=== PATIENT | female | born 1975 | race Caucasian/White ===

== ENCOUNTER 2016-09-27 10:58 | Emergency (ER) | payer SELFPAY ==
[~2016-09-27 10:58] MED LIST: AMOX500C PO; CHLO15MO2 PO; CLIN-44 PO; HYDR-2666 PO; HYDR-971 PO; IBUP800T PO
[2016-09-27 11:05] VITALS: BP 113/74
[2016-09-27] MEDS ORDERED: IPRATRPIUM/ALBUTEROL 0.5/2.5MG 3 ML NEBU. ONE (11:12)
[2016-09-27] MEDS: IPRATRPIUM/ALBUTEROL 0.5/2.5MG 3 ML NEBU. NEB ONE (11:16)
--- NOTE | 2016-09-27 11:39 | RAD ---
PA and lateral chest radiographs 09/27/2016 Clinical history: Cough for 4 days. 2 PA and a lateral digital radiographs of the chest were obtained. Comparison study is dated 06/22/2015. The cardiac and mediastinal silhouettes are within normal limits in size and configuration. No acute pulmonary infiltrate is seen. No pleural effusion or pneumothorax is noted. Minimal degenerative changes are seen involving the thoracic spine. Impression: No acute abnormality is seen.
[2016-09-27] MEDS ORDERED: IBUP600T16 PO (12:16)
[2016-09-27] MEDS ORDERED: ALBU8.5H3 INH (12:16)
[2016-09-27] MEDS ORDERED: PRED50TA PO (12:16)
--- NOTE | 2016-09-27 12:35 | ED.ADGEN ---
Past History Past Medical History: Asthma Past Surgical History: Appendectomy, Hysterectomy, Other Smoking: Greater than 1 pack/day Alcohol Use: None Drug Use: None Adult General Chief Complaint Chief Complaint Cough , body aches HPI HPI Patient is a 41 year old female who presents with 4 days of cough, congestion, sinus drainage, body aches and wheezing. Patient reports she has a history of asthma, has been using her daughter's inhaler she does not have one. She's had subjective fevers, not taken her temperature. Not taking symptom controlling medication. Does not actively have a primary care physician. Review of Systems Review of Systems Constitutional: Per history of present illness Eyes: Denies change in visual acuity, redness, or eye pain [] HENT: Denies nasal congestion or sore throat [] Respiratory: Per history of present illness Cardiovascular: Denies chest pain GI: Denies abdominal pain, nausea, vomiting, bloody stools or diarrhea [] : Denies dysuria or hematuria [] Musculoskeletal: Denies back pain or joint pain [] Integument: Denies rash or skin lesions [] Neurologic: Denies headache, focal weakness or sensory changes [] Current Medications Current Medications Current Medications Medications (Trade) Dose Ordered Sig/Raad Start Time Stop Time Status Last Admin Dose Admin Albuterol/ Ipratropium (Duoneb) 3 ml STK-MED ONCE 09/27/16 11:12 09/27/16 11:13 DC Allergies Allergies Allergies Coded Allergies Type Severity Reaction Last Updated Verified No Known Drug Allergies 08/20/13 No Physical Exam Physical Exam Constitutional: Well developed, well nourished, no acute distress, ill appearing , non-toxic appearance. [] HENT: Normocephalic, atraumatic, bilateral external ears normal, oropharynx moist, no oral exudates, nose normal. [] Eyes: PERRLA, EOMI, conjunctiva normal, no discharge. [] Neck: Normal range of motion, no tenderness, supple, no stridor. [] Cardiovascular:Heart rate regular rhythm, no murmur [] Lungs & Thorax: Bilateral breath sounds and expiratory wheezes, moderate air movement Abdomen: Bowel sounds normal, soft, no tenderness, no masses, no pulsatile masses. [] Skin: Warm, dry, no erythema, no rash. [] Back: No tenderness, no CVA tenderness. [] Extremities: No tenderness, no cyanosis, no clubbing, ROM intact, no edema. [] Neurologic: Alert and oriented X 3, normal motor function, normal sensory function, no focal deficits noted. [] Psychologic: Affect normal, judgement normal, mood normal. [] Current Patient Data Vital Signs Vital Signs Date Time Temp Pulse Resp B/P Pulse Ox O2 Delivery O2 Flow Rate FiO2 09/27/16 11:16 98 Room Air 09/27/16 11:05 98.2 73 22 EKG EKG [] Radiology/Procedures Radiology/Procedures Chest x-ray: PA and lateral chest radiographs 09/27/2016 Clinical history: Cough for 4 days. 2 PA and a lateral digital radiographs of the chest were obtained. Comparison study is dated 06/22/2015. The cardiac and mediastinal silhouettes are within normal limits in size and configuration. No acute pulmonary infiltrate is seen. No pleural effusion or pneumothorax is noted. Minimal degenerative changes are seen involving the thoracic spine. Impression: No acute abnormality is seen. Course & Med Decision Making Course & Med Decision Making Pertinent Labs and Imaging studies reviewed. (See chart for details) Patient was given a DuoNeb breathing treatment and states she is feeling much better. Chest x-ray performed shows no acute process. Recommended patient to 5 days of steroids, prescription for albuterol inhaler given. Patient reports understanding, understands follow-up with primary care physician, referral sheet given. Patient also given her prescription for ibuprofen for body aches. On repeat exam patient is moving good air without wheeze Final Impression Final Impression Upper respiratory infection Asthma [] Problems: Dragon Disclaimer Dragon Disclaimer This electronic medical record was generated, in whole or in part, using a voice recognition dictation system. HERRERA PETERSON MD Sep 27, 2016 12:35
== END 2016-09-27 12:40 | disposition home or self-care (01) ==
LOC: ER 10:58
DX: J06.9 Acute upper respiratory infection, unspecified (principal); J45.909 Unspecified asthma, uncomplicated; R50.9 Fever, unspecified; F17.200 Nicotine dependence, unspecified, uncomplicated
CPT/HCPCS: 71020; 94640; 99284; J7620

== ENCOUNTER 2017-09-02 21:08 | Emergency (ER) | payer SELFPAY ==
[~2017-09-02] VITALS: Ht 162.6 cm; Wt 61.7 kg
[2017-09-02 21:08] VITALS: BP 160/79
[~2017-09-02 21:08] MED LIST changes: +ALBU8.5H8 INH; -CLIN-44 PO; +CLIN150C14 PO; -HYDR-2666 PO; +HYDR-2758 PO; +IBUP600T16 PO; -IBUP800T PO; +IBUP800T19 PO; +PRED50TA PO
--- NOTE | 2017-09-02 21:13 | ED.ADGEN ---
Past History Past Medical History: Asthma Past Surgical History: Appendectomy, Hysterectomy, Other Smoking: Greater than 1 pack/day Alcohol Use: None Drug Use: None Adult General Chief Complaint Chief Complaint " I was eating cake at wedding shower.. and got this severe pain.. I am dying from this dental pain" HPI HPI Patient is a 42 year old female who presents with severe pain and dental cavities particularly teeth 30, 31, 32. She has multiple cavities and gingivitis. No pointing abscesses appreciated. No history of immunosuppression. Recent travel. No trismus. Good bite. Review of Systems Review of Systems Constitutional: Denies fever or chills [] Eyes: Denies change in visual acuity, redness, or eye pain [] HENT: Denies nasal congestion or sore throat []complaints of severe dental pain Respiratory: Denies cough or shortness of breath [] Cardiovascular: No additional information not addressed in HPI [] GI: Denies abdominal pain, nausea, vomiting, bloody stools or diarrhea [] : Denies dysuria or hematuria [] Musculoskeletal: Denies back pain or joint pain [] Integument: Denies rash or skin lesions [] Neurologic: Denies headache, focal weakness or sensory changes [] Endocrine: Denies polyuria or polydipsia [] All other systems were reviewed and found to be within normal limits, except as documented in this note. Family History Family History Noncontributory Current Medications Current Medications Current Medications Medications (Trade) Dose Ordered Sig/Raad Start Time Stop Time Status Last Admin Dose Admin Acetaminophen (Tylenol) 1,000 mg 1X ONCE 09/02/17 22:00 09/02/17 22:01 DC 09/02/17 21:31 1,000 MG Cephalexin HCl (Keflex) 500 mg 1X ONCE 09/02/17 22:00 09/02/17 22:01 DC 09/02/17 21:31 500 MG Ketorolac Tromethamine (Toradol) 60 mg 1X ONCE 09/02/17 22:00 09/02/17 22:01 DC 09/02/17 21:30 60 MG Morphine Sulfate (Morphine 10mg Syringe) 10 mg 1X ONCE 09/02/17 22:30 09/02/17 22:31 DC 09/02/17 22:40 10 MG See nursing for home meds Allergies Allergies Allergies Coded Allergies Type Severity Reaction Last Updated Verified No Known Drug Allergies 08/20/13 No Physical Exam Physical Exam Constitutional: Well developed, well nourished,in acute distress, non-toxic appearance. [] HENT: Normocephalic, atraumatic, bilateral external ears normal, oropharynx moist, no oral exudates, nose normal. []Multiple dental caries and pain in molar teeth as per history of present illness Eyes: PERRLA, EOMI, conjunctiva normal, no discharge. [] Neck: Normal range of motion, no tenderness, supple, no stridor. [] Cardiovascular: Tachycardia Heart rate regular rhythm, no murmur [] Lungs & Thorax: Bilateral breath sounds equal at apexes with a few scattered wheezes on auscultation [] Abdomen: Bowel sounds normal, soft, no tenderness, no masses, no pulsatile masses. Old surgery scars Skin: Warm, dry, no erythema, no rash. [] Back: No tenderness, no CVA tenderness. [] Extremities: No tenderness, no cyanosis, no clubbing, ROM intact, no edema. [] Neurologic: Alert and oriented X 3, normal motor function, normal sensory function, no focal deficits noted. [] Psychologic: Affect anxious, judgement normal, mood depressed, tearful,] EKG EKG [] Radiology/Procedures Radiology/Procedures [] Course & Med Decision Making Course & Med Decision Making Pertinent Labs and Imaging studies reviewed. (See chart for details). Patient to rinse mouth with hydrogen peroxide 4 times a day after eating or drinking. Take Keflex 500 mg 3 times a day. May take Vicoprofen for severe pain not relieved with Tylenol and ibuprofen. Patient must follow-up with Dentist. Further narcotics must be refilled by primary care and dentist. [] Final Impression Final Impression 1. Dental pain[]- Morlar 30, 31, 32, 2. Dental caries and gingivitis 3. Tobacco use Problems: Dragon Disclaimer Dragon Disclaimer This electronic medical record was generated, in whole or in part, using a voice recognition dictation system. JANETH PUTNAM MD Sep 02, 2017 21:13
[2017-09-02] MEDS ORDERED: CEPHALEXIN 250 MG CAPSULE ONE (21:24)
[2017-09-02] MEDS ORDERED: ACETAMINOPHEN 500 MG TABLET PO ONE ×2 (21:24→22:00)
[2017-09-02] MEDS ORDERED: KETOROLAC 60 MG/2 ML VIAL. IM ONE ×2 (21:24→22:00)
[2017-09-02] MEDS ORDERED: HYDR-79 PO (21:26)
[2017-09-02] MEDS ORDERED: CEPH-264 PO (21:26)
[2017-09-02] MEDS ORDERED: MORPHINE SULFATE 10 MG/ML SYRINGE. ONE (21:56)
[2017-09-02] MEDS ORDERED: CEPHALEXIN 250 MG CAPSULE PO ONE (22:00)
[2017-09-02] MEDS ORDERED: MORPHINE SULFATE 10 MG/ML SYRINGE. SQ ONE (22:30)
== END 2017-09-02 22:40 | disposition home or self-care (01) ==
LOC: ER 21:08
DX: K02.9 Dental caries, unspecified (principal); K05.10 Chronic gingivitis, plaque induced; F17.200 Nicotine dependence, unspecified, uncomplicated; J45.909 Unspecified asthma, uncomplicated
CPT/HCPCS: 96372; 99284; J1885; J2270

== ENCOUNTER 2017-10-07 17:15 | Emergency (ER) | payer SELFPAY ==
[~2017-10-07] VITALS: Ht 162.6 cm; Wt 56.7 kg
[~2017-10-07 17:15] MED LIST changes: +CEPH-264 PO; +HYDR-79 PO
[2017-10-07] MEDS ORDERED: IV NORMAL SALINE 1,000ML 1,000 ML IV SCH (17:36)
[2017-10-07] MEDS ORDERED: ONDANSETRON PF 4 MG/2 ML VIAL. IV ONE ×2 (17:45→20:30)
[2017-10-07] MEDS ORDERED: 0.9 % SODIUM CHLORIDE 10 ML DISP.SYRIN. IV PRN (17:45)
[2017-10-07 17:55] LABS: BASO # 0.1 x10^3/uL (0.0-0.2); BASO % 1 % (0-3); EOS # 0.2 x10^3/uL (0.0-0.7); EOS % 2 % (0-3); HEMATOCRIT 40.3 % (36.0-47.0); HEMOGLOBIN 13.9 g/dL (12.0-15.5); LYMPH # 2.7 x10^3/uL (1.0-4.8); LYMPH % 26 % (24-48); MEAN CORPUSCULAR HEMOGLOBIN 31 pg (25-35); MEAN CORPUSCULAR HGB CONC 34 g/dL (31-37); MEAN CORPUSCULAR VOLUME 91 fL (79-100); MONO # 0.7 x10^3/uL (0.0-1.1); MONO % 7 % (0-9); NEUT # 6.9 x10^3uL (1.8-7.7); NEUT % 66 % (31-73); PLATELET COUNT 230 x10^3/uL (140-400); RED BLOOD COUNT 4.44 x10^6/uL (3.50-5.40); RED CELL DISTRIBUTION WIDTH 12.9 % (11.5-14.5); WHITE BLOOD COUNT 10.6 x10^3/uL (4.0-11.0)
--- NOTE | 2017-10-07 18:00 | ED.ADGEN ---
Past History Past Medical History: No Pertinent History Past Surgical History: No Surgical History Smoking: Greater than 1 pack/day Alcohol Use: Occasionally Drug Use: None Adult General Chief Complaint Chief Complaint " I ve been dizzy to day.. and some discomfort when I urinate...".. " just feel off..." HPI HPI Patient is a 42 year old female who presents with above hx and complaints of dizzy and dysuria. Pt. complaints of some nausea. Pt. has hx of prior UTI's. No travel or specific ill contacts. Pt. denies any trauma. Pt. normally healthy. No complaints of shortness of breath or irregular heart rate. Review of Systems Review of Systems Constitutional: Denies fever or chills [] Eyes: Denies change in visual acuity, redness, or eye pain [] HENT: Denies nasal congestion or sore throat [] Respiratory: Denies cough or shortness of breath [] Cardiovascular: No additional information not addressed in HPI [] GI: Denies abdominal pain, nausea, vomiting, bloody stools or diarrhea [] : Complaints of dysuria Musculoskeletal: Denies back pain or joint pain [] Integument: Denies rash or skin lesions [] Neurologic: Denies headache, focal weakness or sensory changes []complaints of dizziness Endocrine: Denies polyuria or polydipsia [] All other systems were reviewed and found to be within normal limits, except as documented in this note. Family History Family History Noncontributory Current Medications Current Medications Current Medications Medications (Trade) Dose Ordered Sig/Raad Start Time Stop Time Status Last Admin Dose Admin Ceftriaxone Sodium 1 gm/ Sodium Chloride 50 ml @ 100 mls/hr 1X ONCE 10/07/17 19:45 10/07/17 20:14 DC 10/07/17 20:00 100 MLS/HR Ondansetron HCl (Zofran) 8 mg 1X ONCE 10/07/17 20:30 10/07/17 20:31 DC 10/07/17 20:15 8 MG Sodium Chloride (Normal Saline Flush) 10 ml QSHIFT PRN 10/07/17 17:45 10/08/17 01:51 DC Trimethoprim/ Sulfamethoxazole (Bactrim Ds) 1 tab 1X ONCE 10/07/17 20:00 10/07/17 20:05 DC 10/07/17 20:00 1 TAB Allergies Allergies Allergies Coded Allergies Type Severity Reaction Last Updated Verified No Known Drug Allergies 08/20/13 No Physical Exam Physical Exam Constitutional: Well developed, well nourished, no acute distress, non-toxic appearance. [] HENT: Normocephalic, atraumatic, bilateral external ears normal, oropharynx moist, no oral exudates, nose normal. [] Eyes: PERRLA, EOMI, conjunctiva normal, no discharge. [] Neck: Normal range of motion, no tenderness, supple, no stridor. [] Cardiovascular:Heart rate regular rhythm, no murmur [] Lungs & Thorax: Bilateral breath sounds equal at apex with scattered wheezes on auscultation [] Abdomen: Bowel sounds normal, soft, no tenderness, no masses, no pulsatile masses. [] Skin: Warm, dry, no erythema, no rash. [] Back: No tenderness, no CVA tenderness. [] Extremities: No tenderness, no cyanosis, no clubbing, ROM intact, no edema. [] No cording noted Neurologic: Alert and oriented X 3, normal motor function, normal sensory function, no focal deficits noted. []DTRs +2 patella and brachial. No drift. Turbinated Bone Grinder equal. Ambulatory without problems. Psychologic: Affect anxious, judgement normal, mood normal. [] Current Patient Data Vital Signs Vital Signs Date Time Temp Pulse Resp B/P (MAP) Pulse Ox O2 Delivery O2 Flow Rate FiO2 10/07/17 18:04 78 16 85/56 (66) 99 Room Air 10/07/17 17:24 98.3 Lab Results Laboratory Tests Test 10/07/17 17:31 10/07/17 18:22 White Blood Count 10.6 x10^3/uL (4.0-11.0) Red Blood Count 4.44 x10^6/uL (3.50-5.40) Hemoglobin 13.9 g/dL (12.0-15.5) Hematocrit 40.3 % (36.0-47.0) Mean Corpuscular Volume 91 fL (79-100) Mean Corpuscular Hemoglobin 31 pg (25-35) Mean Corpuscular Hemoglobin Concent 34 g/dL (31-37) Red Cell Distribution Width 12.9 % (11.5-14.5) Platelet Count 230 x10^3/uL (140-400) Neutrophils (%) (Auto) 66 % (31-73) Lymphocytes (%) (Auto) 26 % (24-48) Monocytes (%) (Auto) 7 % (0-9) Eosinophils (%) (Auto) 2 % (0-3) Basophils (%) (Auto) 1 % (0-3) Neutrophils # (Auto) 6.9 x10^3uL (1.8-7.7) Lymphocytes # (Auto) 2.7 x10^3/uL (1.0-4.8) Monocytes # (Auto) 0.7 x10^3/uL (0.0-1.1) Eosinophils # (Auto) 0.2 x10^3/uL (0.0-0.7) Basophils # (Auto) 0.1 x10^3/uL (0.0-0.2) Sodium Level 140 mmol/L (136-145) Potassium Level 3.6 mmol/L (3.5-5.1) Chloride Level 104 mmol/L (98-107) Carbon Dioxide Level 28 mmol/L (21-32) Anion Gap 8 (6-14) Blood Urea Nitrogen 8 mg/dL (7-20) Creatinine 0.7 mg/dL (0.6-1.0) Estimated GFR (Cockcroft-Gault) 91.3 BUN/Creatinine Ratio 11 (6-20) Glucose Level 97 mg/dL (70-99) Calcium Level 8.6 mg/dL (8.5-10.1) Total Bilirubin 0.3 mg/dL (0.2-1.0) Aspartate Amino Transferase (AST) 17 U/L (15-37) Alanine Aminotransferase (ALT) 23 U/L (14-59) Alkaline Phosphatase 92 U/L (46-116) Total Protein 7.2 g/dL (6.4-8.2) Albumin 3.5 g/dL (3.4-5.0) Albumin/Globulin Ratio 0.9 (1.0-1.7) L Lipase 113 U/L (73-393) Urine Collection Type Unknown Urine Color Yellow Urine Clarity Turbid Urine pH 8.0 Urine Specific [place] 1.020 Urine Protein 30 mg/dl (NEG-TRACE) Urine Glucose (UA) Neg mg/dL (NEG) Urine Ketones (Stick) Neg mg/dL (NEG) Urine Blood Trace (NEG) Urine Nitrite Neg (NEG) Urine Bilirubin Neg (NEG) Urine Urobilinogen Dipstick 0.2 mg/dL (0.2 mg/dL) Urine Leukocyte Esterase Mod (NEG) Urine RBC 3-5 /HPF (0-2) Urine WBC >40 /HPF (0-4) Urine Squamous Epithelial Cells Mod /LPF Urine Bacteria Few /HPF (0-FEW) Urine Mucus Slight /LPF EKG EKG [] Radiology/Procedures Radiology/Procedures [] Course & Med Decision Making Course & Med Decision Making Pertinent Labs and Imaging studies reviewed. (See chart for details). Push fluids. Push vitamin C drinks. Take Bactrim DS twice a day. Follow-up cultures. Tylenol ibuprofen for pain. Return if any concerns. Follow-up primary care. [] Final Impression Final Impression 1. Urinary tract infection 2. Dizziness] Problems: Dragon Disclaimer Dragon Disclaimer This electronic medical record was generated, in whole or in part, using a voice recognition dictation system. JANETH PUTNAM MD Oct 07, 2017 18:00
[2017-10-07 18:04] VITALS: BP 85/56
[2017-10-07 18:07] LABS: ALBUMIN 3.5 g/dL (3.4-5.0); ALBUMIN/GLOBULIN RATIO 0.9 (1.0-1.7); CALCIUM 8.6 mg/dL (8.5-10.1); CREATININE 0.7 mg/dL (0.6-1.0); GFR 91.3; POTASSIUM 3.6 mmol/L (3.5-5.1); TOTAL BILIRUBIN 0.3 mg/dL (0.2-1.0); TOTAL PROTEIN 7.2 g/dL (6.4-8.2)
[2017-10-07 19:00] LABS: BILIRUBIN,URINE NEG (NEG); CLARITY,URINE TURBID; COLOR,URINE YELLOW; GLUCOSE,URINE NEG (NEG); UROBILINOGEN,URINE 0.2 mg/dL (0.2 mg/dL)
[2017-10-07 19:01] LABS: BACTERIA,URINE FEW /HPF (0-FEW); NITRITE,URINE NEG (NEG); SQUAMOUS EPITHELIAL CELL,UR MOD /LPF; WBC,URINE >40 /HPF (0-4)
[2017-10-07] MEDS ORDERED: ONDA8TAB12 PO (19:29)
[2017-10-07] MEDS ORDERED: SULF1TAB24 PO (19:29)
[2017-10-07] MEDS ORDERED: SMZ/TMP 800/160MG TABLET. PO ONE (20:00)
== END 2017-10-07 20:15 | disposition home or self-care (01) ==
LOC: ER 17:15
DX: N39.0 Urinary tract infection, site not specified (principal); R42 Dizziness and giddiness; F17.200 Nicotine dependence, unspecified, uncomplicated; Z87.440 Personal history of urinary (tract) infections
CPT/HCPCS: 36415; 80053; 81001; 83690; 85025; 96361; 96374; 96375; 96376; 99284; J0696; J2405; J7030

== ENCOUNTER 2018-10-11 18:13 | Emergency (ER) | payer SELFPAY ==
[~2018-10-11] VITALS: Ht 162.6 cm; Wt 55.3 kg
[~2018-10-11 18:13] MED LIST changes: +ALBU2.5V8 INH; -ALBU8.5H8 INH; +HYDR-1179 PO; +HYDR-2155 PO; -HYDR-2758 PO; +HYDR-3165 PO; -HYDR-79 PO; -HYDR-971 PO; +ONDA8TAB12 PO; +SULF1TAB24 PO
--- NOTE | 2018-10-11 18:17 | ED.ADGEN ---
Past History Past Medical History: No Pertinent History, Migraines, UTI Past Surgical History: Hysterectomy Smoking: Greater than 1 pack/day Alcohol Use: Occasionally Drug Use: None, Amphetamine, Marijuana Adult General Chief Complaint Chief Complaint ".. I ve been hurting for two days in my lower back.. it like when I had urinary tract infection before.. but no I got headache, dizzy, and nauseated...". " I ve been coughing today... " HPI HPI Patient is a 43 year old female who presents with above hx and complaints dizzy and light headed, malaise, cough and Rt. mid to lower abd. pain. Pt. also complaints of lumbar pain. No history of trauma. No history of problems with defecation or urination. Patient states she is recently treated for urinary tract infection. Patient states she's had a hysterectomy. Patient still has ovaries. No history of vaginal discharge. No history of concerns for STD. Patient did have gonorrhea as a teenager. Patient does smoke. No history of bad food intake. No history of specific ill contacts. No history of travel. No history immunosuppression. Review of Systems Review of Systems Constitutional: Denies fever or chills [] Eyes: Denies change in visual acuity, redness, or eye pain [] HENT: Denies nasal congestion or sore throat [] Respiratory: Complaints of cough Cardiovascular: No additional information not addressed in HPI [] GI: Complaints of right flank and mid abdominal pain, nausea,. Denies vomiting, bloody stools or diarrhea [] : Denies dysuria or hematuria [] Musculoskeletal: Complains of of lumbar back pain Integument: Denies rash or skin lesions [] Neurologic: Denies headache, focal weakness or sensory changes [] Endocrine: Denies polyuria or polydipsia [] All other systems were reviewed and found to be within normal limits, except as documented in this note. Family History Family History Noncontributory Current Medications Current Medications Current Medications Medications (Trade) Dose Ordered Sig/Raad Start Time Stop Time Status Last Admin Dose Admin Acetaminophen (Tylenol) 1,000 mg 1X ONCE 10/11/18 19:00 10/11/18 19:01 DC 10/11/18 19:37 1,000 MG Ceftriaxone Sodium 1 gm/ Sodium Chloride 50 ml @ 100 mls/hr 1X ONCE 10/11/18 20:45 10/11/18 21:14 DC 10/11/18 21:39 100 MLS/HR Ceftriaxone Sodium (Rocephin) 1 gm STK-MED ONCE 10/11/18 21:25 10/11/18 21:26 DC Iohexol (Omnipaque 240 Mg/ml) 30 ml 1X ONCE 10/11/18 21:00 10/11/18 21:01 DC 10/11/18 22:34 30 ML Iohexol (Omnipaque 300 Mg/ml) 75 ml 1X ONCE 10/11/18 21:00 10/11/18 21:01 DC 10/11/18 22:34 75 ML Ketorolac Tromethamine (Toradol 30mg Vial) 30 mg 1X ONCE 10/11/18 20:00 10/11/18 20:01 DC 10/11/18 21:40 30 MG Lactated Ringer's 1,000 ml @ 1,000 mls/hr Q1H 10/11/18 18:35 10/11/18 19:34 DC 10/11/18 19:36 1,000 MLS/HR Ondansetron HCl (Zofran) 8 mg 1X ONCE 10/11/18 19:00 10/11/18 19:01 DC 10/11/18 19:37 8 MG Sodium Chloride 50 ml @ As Directed STK-MED ONCE 10/11/18 21:25 10/11/18 21:26 DC Allergies Allergies Allergies Coded Allergies Type Severity Reaction Last Updated Verified No Known Drug Allergies 10/11/18 No Physical Exam Physical Exam Constitutional: Moderately acute distress, non-toxic appearance. [] HENT: Normocephalic, atraumatic, bilateral external ears normal, oropharynx moist, no oral exudates, nose normal. [] Eyes: PERRLA, EOMI, conjunctiva normal, no discharge. [] Neck: Normal range of motion, no tenderness, supple, no stridor. [] Cardiovascular: Tachycardia Heart rate regular rhythm, no murmur [] Lungs & Thorax: Bilateral breath sounds equal apex with scattered wheezes auscultation []some rhonchi on right Abdomen: Bowel sounds decreased, soft, right mid abdomen tenderness, no masses, no pulsatile masses. [] Some right flank pain on percussion. Mild rebound to right mid abdomen. Old surgical scar. Pt. declined rectal exam or pelvic exam. Skin: Warm, dry, no erythema, no rash. [] Back: Lumbar muscle tenderness, mild right CVA tenderness. [] Extremities: No tenderness, no cyanosis, no clubbing, ROM intact, no edema. [] No true psoas sign Neurologic: Alert and oriented X 3, normal motor function, normal sensory function, no focal deficits noted. [] Psychologic: Affect anxious, judgement normal, mood normal. [] Current Patient Data Vital Signs Vital Signs Date Time Temp Pulse Resp B/P (MAP) Pulse Ox O2 Delivery O2 Flow Rate FiO2 10/12/18 00:22 73 20 90/52 (65) 98 Room Air 10/11/18 18:23 98.2 Lab Results Laboratory Tests Test 10/11/18 19:05 10/11/18 19:25 Urine Collection Type Unknown Urine Color Yellow Urine Clarity Clear Urine pH 7.5 Urine Specific [place] 1.015 Urine Protein Neg (NEG-TRACE) Urine Glucose (UA) Neg mg/dL (NEG) Urine Ketones (Stick) Neg mg/dL (NEG) Urine Blood Neg (NEG) Urine Nitrite Neg (NEG) Urine Bilirubin Neg (NEG) Urine Urobilinogen Dipstick 0.2 mg/dL (0.2 mg/dL) Urine Leukocyte Esterase Neg (NEG) Urine RBC 0 /HPF (0-2) Urine WBC 0 /HPF (0-4) Urine Squamous Epithelial Cells Occ /LPF Urine Bacteria 0 /HPF (0-FEW) Urine Opiates Screen Neg (NEG) Urine Methadone Screen Neg (NEG) Urine Barbiturates Neg (NEG) Urine Phencyclidine Screen Neg (NEG) Urine Amphetamine/Methamphetamine Neg (NEG) Urine Benzodiazepines Screen Neg (NEG) Urine Cocaine Screen Pos (NEG) Urine Cannabinoids Screen Neg (NEG) Urine Ethyl Alcohol Neg (NEG) White Blood Count 13.4 x10^3/uL (4.0-11.0) H Red Blood Count 4.65 x10^6/uL (3.50-5.40) Hemoglobin 14.2 g/dL (12.0-15.5) Hematocrit 42.0 % (36.0-47.0) Mean Corpuscular Volume 90 fL (79-100) Mean Corpuscular Hemoglobin 30 pg (25-35) Mean Corpuscular Hemoglobin Concent 34 g/dL (31-37) Red Cell Distribution Width 12.8 % (11.5-14.5) Platelet Count 264 x10^3/uL (140-400) Neutrophils (%) (Auto) 73 % (31-73) Lymphocytes (%) (Auto) 21 % (24-48) L Monocytes (%) (Auto) 5 % (0-9) Eosinophils (%) (Auto) 1 % (0-3) Basophils (%) (Auto) 1 % (0-3) Neutrophils # (Auto) 9.7 x10^3uL (1.8-7.7) H Lymphocytes # (Auto) 2.8 x10^3/uL (1.0-4.8) Monocytes # (Auto) 0.7 x10^3/uL (0.0-1.1) Eosinophils # (Auto) 0.1 x10^3/uL (0.0-0.7) Basophils # (Auto) 0.1 x10^3/uL (0.0-0.2) Erythrocyte Sedimentation Rate 12 (0-25) Prothrombin Time 9.7 SEC (9.4-11.4) Prothrombin Time INR 1.0 (0.9-1.1) PTT 25 SEC (23-33) D-Dimer (Phoebe) 0.28 mg/L (0.00-0.50) Sodium Level 139 mmol/L (136-145) Potassium Level 3.7 mmol/L (3.5-5.1) Chloride Level 102 mmol/L (98-107) Carbon Dioxide Level 29 mmol/L (21-32) Anion Gap 8 (6-14) Blood Urea Nitrogen 9 mg/dL (7-20) Creatinine 0.6 mg/dL (0.6-1.0) Estimated GFR (Cockcroft-Gault) 108.6 Glucose Level 79 mg/dL (70-99) Calcium Level 9.1 mg/dL (8.5-10.1) Magnesium Level 2.0 mg/dL (1.8-2.4) Total Bilirubin 0.3 mg/dL (0.2-1.0) Direct Bilirubin 0.1 mg/dL (0.0-0.2) Aspartate Amino Transferase (AST) 15 U/L (15-37) Alanine Aminotransferase (ALT) 19 U/L (14-59) Alkaline Phosphatase 94 U/L (46-116) Creatine Kinase 82 U/L (26-192) Creatine Kinase MB (Mass) 0.9 ng/mL (0.0-3.6) Creatine Kinase MB Relative Index 1.1 % (0-4) Troponin I Quantitative < 0.017 ng/mL (0-0.055) Total Protein 7.6 g/dL (6.4-8.2) Albumin 3.8 g/dL (3.4-5.0) Lipase 109 U/L (73-393) EKG EKG My interpretation of EKG shows a sinus rhythm at 71 bpm. No acute morphology[] Radiology/Procedures Radiology/Procedures Dictation of acute abdomen shows no acute cardiopulmonary findings. No free air in the diaphragm. Not significant. Bowel gas pattern. Prior surgical clips. CT of the abdomen with contrast shows no acute surgical pathology. Does have findings of right ovarian cysts. Does have findings of previous hysterectomy.[] Course & Med Decision Making Course & Med Decision Making Pertinent Labs and Imaging studies reviewed. (See chart for details) Patient at time of discharge reports marked improvement of symptoms and almost completely pain free. Patient encouraged to remain on a clear fluid diet x24.. Patient encouraged to avoid illicit drugs and tobacco use. Patient push fluids. Patient take Keflex 500 mg 3 times a day. Patient follow-up primary care. Patient follow-up with [facility]. Patient recommended obtaining a OUTPATIENT TO EVALUATE RIGHT OVARIAN CYST. FURTHER. PAIN AND/OR IF ANY CONCERNS. Return for reevaluation. [] Final Impression Final Impression 1. Abd. Pain 2. Ovarian Cyst right 3. Bronchitis 4. Tobacco and Cocaine Use[] Dragon Disclaimer Dragon Disclaimer This electronic medical record was generated, in whole or in part, using a voice recognition dictation system. Discharge Summary Visit Information Final Diagnosis Problems Medical Problems: (1) Ovarian cyst Status: Acute (2) Pain in the abdomen Status: Acute Brief Hospital Course Allergies Allergies Coded Allergies Type Severity Reaction Last Updated Verified No Known Drug Allergies 10/11/18 No Vital Signs Vital Signs Date Time Temp Pulse Resp B/P (MAP) Pulse Ox O2 Delivery O2 Flow Rate FiO2 10/12/18 00:22 73 20 90/52 (65) 98 Room Air 10/11/18 18:23 98.2 Lab Results Laboratory Tests Test 10/11/18 19:05 10/11/18 19:25 Urine Collection Type Unknown Urine Color Yellow Urine Clarity Clear Urine pH 7.5 Urine Specific [place] 1.015 Urine Protein Neg (NEG-TRACE) Urine Glucose (UA) Neg mg/dL (NEG) Urine Ketones (Stick) Neg mg/dL (NEG) Urine Blood Neg (NEG) Urine Nitrite Neg (NEG) Urine Bilirubin Neg (NEG) Urine Urobilinogen Dipstick 0.2 mg/dL (0.2 mg/dL) Urine Leukocyte Esterase Neg (NEG) Urine RBC 0 /HPF (0-2) Urine WBC 0 /HPF (0-4) Urine Squamous Epithelial Cells Occ /LPF Urine Bacteria 0 /HPF (0-FEW) Urine Opiates Screen Neg (NEG) Urine Methadone Screen Neg (NEG) Urine Barbiturates Neg (NEG) Urine Phencyclidine Screen Neg (NEG) Urine Amphetamine/Methamphetamine Neg (NEG) Urine Benzodiazepines Screen Neg (NEG) Urine Cocaine Screen Pos (NEG) Urine Cannabinoids Screen Neg (NEG) Urine Ethyl Alcohol Neg (NEG) White Blood Count 13.4 x10^3/uL (4.0-11.0) Red Blood Count 4.65 x10^6/uL (3.50-5.40) Hemoglobin 14.2 g/dL (12.0-15.5) Hematocrit 42.0 % (36.0-47.0) Mean Corpuscular Volume 90 fL (79-100) Mean Corpuscular Hemoglobin 30 pg (25-35) Mean Corpuscular Hemoglobin Concent 34 g/dL (31-37) Red Cell Distribution Width 12.8 % (11.5-14.5) Platelet Count 264 x10^3/uL (140-400) Neutrophils (%) (Auto) 73 % (31-73) Lymphocytes (%) (Auto) 21 % (24-48) Monocytes (%) (Auto) 5 % (0-9) Eosinophils (%) (Auto) 1 % (0-3) Basophils (%) (Auto) 1 % (0-3) Neutrophils # (Auto) 9.7 x10^3uL (1.8-7.7) Lymphocytes # (Auto) 2.8 x10^3/uL (1.0-4.8) Monocytes # (Auto) 0.7 x10^3/uL (0.0-1.1) Eosinophils # (Auto) 0.1 x10^3/uL (0.0-0.7) Basophils # (Auto) 0.1 x10^3/uL (0.0-0.2) Erythrocyte Sedimentation Rate 12 (0-25) Prothrombin Time 9.7 SEC (9.4-11.4) Prothromb Time International Ratio 1.0 (0.9-1.1) Activated Partial Thromboplast Time 25 SEC (23-33) D-Dimer (Phoebe) 0.28 mg/L (0.00-0.50) Sodium Level 139 mmol/L (136-145) Potassium Level 3.7 mmol/L (3.5-5.1) Chloride Level 102 mmol/L (98-107) Carbon Dioxide Level 29 mmol/L (21-32) Anion Gap 8 (6-14) Blood Urea Nitrogen 9 mg/dL (7-20) Creatinine 0.6 mg/dL (0.6-1.0) Estimated GFR (Cockcroft-Gault) 108.6 Glucose Level 79 mg/dL (70-99) Calcium Level 9.1 mg/dL (8.5-10.1) Magnesium Level 2.0 mg/dL (1.8-2.4) Total Bilirubin 0.3 mg/dL (0.2-1.0) Direct Bilirubin 0.1 mg/dL (0.0-0.2) Aspartate Amino Transf (AST/SGOT) 15 U/L (15-37) Alanine Aminotransferase (ALT/SGPT) 19 U/L (14-59) Alkaline Phosphatase 94 U/L (46-116) Creatine Kinase 82 U/L (26-192) Creatine Kinase MB (Mass) 0.9 ng/mL (0.0-3.6) Creatine Kinase MB Relative Index 1.1 % (0-4) Troponin I Quantitative < 0.017 ng/mL (0-0.055) Total Protein 7.6 g/dL (6.4-8.2) Albumin 3.8 g/dL (3.4-5.0) Lipase 109 U/L (73-393) Brief Hospital Course Ms. Alaniz is a 43 old female who presented with abd. pain. [place] possible ovarian cyst pain. Pain resolve by time of discharge. Discharge Information Condition at Discharge: Improved, Stable Disposition/Orders: D/C to Home Dischare Medications Current Medications Lactated Ringer's 1,000 ml @ 1,000 mls/hr Q1H IV Last administered on 10/11/18at 19:36; Admin Dose 1,000 MLS/HR; Start 10/11/18 at 18:35; Stop 10/11/18 at 19:34; Status DC Ondansetron HCl (Zofran) 8 mg 1X ONCE IV Last administered on 10/11/18at 19:37; Admin Dose 8 MG; Start 10/11/18 at 19:00; Stop 10/11/18 at 19:01; Status DC Acetaminophen (Tylenol) 1,000 mg 1X ONCE PO Last administered on 10/11/18at 19:37; Admin Dose 1,000 MG; Start 10/11/18 at 19:00; Stop 10/11/18 at 19:01; Status DC Ketorolac Tromethamine (Toradol 30mg Vial) 30 mg 1X ONCE IV Last administered on 10/11/18at 21:40; Admin Dose 30 MG; Start 10/11/18 at 20:00; Stop 10/11/18 at 20:01; Status DC Ceftriaxone Sodium 1 gm/ Sodium Chloride 50 ml @ 100 mls/hr 1X ONCE IV Last administered on 10/11/18at 21:39; Admin Dose 100 MLS/HR; Start 10/11/18 at 20:45; Stop 10/11/18 at 21:14; Status DC Iohexol (Omnipaque 240 Mg/ml) 30 ml 1X ONCE PO Last administered on 10/11/18at 22:34; Admin Dose 30 ML; Start 10/11/18 at 21:00; Stop 10/11/18 at 21:01; Status DC Iohexol (Omnipaque 300 Mg/ml) 75 ml 1X ONCE IV Last administered on 10/11/18at 22:34; Admin Dose 75 ML; Start 10/11/18 at 21:00; Stop 10/11/18 at 21:01; Status DC Sodium Chloride 50 ml @ As Directed STK-MED ONCE .ROUTE ; Start 10/11/18 at 21:25; Stop 10/11/18 at 21:26; Status DC Ceftriaxone Sodium (Rocephin) 1 gm STK-MED ONCE .ROUTE ; Start 10/11/18 at 21:25; Stop 10/11/18 at 21:26; Status DC Active Scripts Active Hydrocodone-Ibuprofen 7.5-200 (Hydrocodone/Ibuprofen) 1 Each Tablet 1 Tab PO PRN Q6HRS PRN Keflex (Cephalexin) 500 Mg Capsule 500 Mg PO TID Bactrim Ds Tablet (Sulfamethoxazole/Trimethoprim) 1 Each Tablet 1 Tab PO BID Zofran Odt (Ondansetron) 8 Mg Tab.rapdis 8 Mg PO QIDPRN PRN Keflex (Cephalexin) 500 Mg Capsule 500 Mg PO TID Hydrocodone-Ibuprofen 7.5-200 (Hydrocodone/Ibuprofen) 1 Each Tablet 1 Tab PO PRN Q6HRS PRN Proair Hfa Inhaler (Albuterol Sulfate) 8.5 Gm Hfa.aer.ad 2 Puff INH PRN Q6HRS PRN with spacer Ibuprofen 600 Mg Tablet 600 Mg PO PRN TID PRN take with food or milk Prednisone 50 Mg Tablet 1 Tab PO DAILY Clindamycin Hcl 150 Mg Capsule 3 Cap PO TID Ibuprofen 800 Mg Tablet 1 Tab PO TID take with food or milk [place] 5-325 Tablet (Hydrocodone Bit/Acetaminophen) 1 Each Tablet 1 Tab PO PRN Q6HRS PRN breakthrough pain Hydrocodone-Apap 5-325 (Hydrocodone Bit/Acetaminophen) 1 Each Tablet 1 Tab PO Q4-6HRS Peridex (Chlorhexidine Gluconate) 15 Ml Mouthwash 15 Ml PO BID Amoxicillin 500 Mg Capsule 1 Cap PO TID Kavon Disclaimer This chart was dictated in whole or in part using Voice Recognition software in a busy, high-work load, and often noisy Emergency Department environment. It may contain unintended and wholly unrecognized errors or omissions. JANETH PUTNAM MD Oct 11, 2018 18:17
--- NOTE | 2018-10-11 18:56 | EKG ---
[address] [address] Test Date: 2018-10-11 Test Time: 18:53:56 Pat Name: ANDREA DOWNS Department: Room: Gender: F [employer]: TANIKA : 1975 Requested By: JANETH PUTNAM Order Number: [id number] Reading MD: Johann Salinas Measurements Intervals [place] Rate: 71 P: 65 SD: 168 QRS: 53 QRSD: 74 T: 55 QT: 416 QTc: 452 Interpretive Statements SINUS RHYTHM NONSPECIFIC ST-T WAVE CHANGES. RI6.01 No previous ECG available for comparison Electronically Signed On 10-17-2018 11:58:13 CDT by Johann Salinas
[2018-10-11] MEDS: IV RINGERS SOLUTION,LACTATED 1,000 ML IV SCH (19:36)
[2018-10-11] MEDS: ACETAMINOPHEN 500 MG TABLET PO ONE (19:37)
[2018-10-11] MEDS: ONDANSETRON PF 4 MG/2 ML VIAL. IV ONE (19:37)
[2018-10-11 19:43] LABS: BASO # 0.1 x10^3/uL (0.0-0.2); BASO % 1 % (0-3); EOS # 0.1 x10^3/uL (0.0-0.7); EOS % 1 % (0-3); HEMOGLOBIN 14.2 g/dL (12.0-15.5); LYMPH # 2.8 x10^3/uL (1.0-4.8); LYMPH % 21 % (24-48); MEAN CORPUSCULAR HEMOGLOBIN 30 pg (25-35); MEAN CORPUSCULAR HGB CONC 34 g/dL (31-37); MEAN CORPUSCULAR VOLUME 90 fL (79-100); MONO # 0.7 x10^3/uL (0.0-1.1); MONO % 5 % (0-9); NEUT # 9.7 x10^3uL (1.8-7.7); NEUT % 73 % (31-73); PLATELET COUNT 264 x10^3/uL (140-400); RED BLOOD COUNT 4.65 x10^6/uL (3.50-5.40); RED CELL DISTRIBUTION WIDTH 12.8 % (11.5-14.5); WHITE BLOOD COUNT 13.4 x10^3/uL (4.0-11.0)
[2018-10-11 19:52] LABS: BARBITURATES NEG (NEG); BENZODIAZEPINES NEG (NEG); CANNABINOIDS NEG (NEG); COCAINE POS (NEG); METHADONE NEG (NEG); OPIATES NEG (NEG); PHENCYCLIDINE NEG (NEG)
[2018-10-11 20:01] LABS: AMPHETAMINE/METHAMPHETAMINE NEG (NEG)
[2018-10-11 20:11] LABS: BACTERIA,URINE 0 /HPF (0-FEW); BILIRUBIN,URINE NEG (NEG); CLARITY,URINE CLEAR; COLOR,URINE YELLOW; GLUCOSE,URINE NEG (NEG); NITRITE,URINE NEG (NEG); RBC,URINE 0 /HPF (0-2); SQUAMOUS EPITHELIAL CELL,UR OCC /LPF; UROBILINOGEN,URINE 0.2 mg/dL (0.2 mg/dL); WBC,URINE 0 /HPF (0-4)
[2018-10-11 20:13] LABS: ALBUMIN 3.8 g/dL (3.4-5.0); CALCIUM 9.1 mg/dL (8.5-10.1); CREATININE 0.6 mg/dL (0.6-1.0); DIRECT BILIRUBIN 0.1 mg/dL (0.0-0.2); GFR 108.6; POTASSIUM 3.7 mmol/L (3.5-5.1); TOTAL BILIRUBIN 0.3 mg/dL (0.2-1.0); TOTAL PROTEIN 7.6 g/dL (6.4-8.2)
[2018-10-11 20:55] LABS: SEDIMENTATION RATE 12 (0-25)
[2018-10-11] MEDS ORDERED: cefTRIAXone SODIUM 1 GM VIAL ONE (21:25)
[2018-10-11] MEDS ORDERED: IV NORMAL SALINE 50ML 50 ML ONE (21:25)
--- NOTE | 2018-10-11 21:31 | RAD ---
CT lumbar spine without contrast History: Back pain Axial helical images of the lumbar spine were obtained without contrast. Axial, coronal and sagittal reconstruction was performed. Findings: The vertebral bodies are aligned. There is no loss of vertebral body stature. Evaluation of the central canal is limited without contrast. There is no significant central or neuroforaminal stenosis. Impression: No acute findings. PQRS Compliance Statement: One or more of the following individualized dose reduction techniques were utilized for this examination: 1. Automated exposure control 2. Adjustment of the mA and/or kV according to patient size 3. Use of iterative reconstruction technique Electronically signed by: Ronal Qureshi III, MD (10/11/2018 9:28 PM) [facility]
[2018-10-11] MEDS: KETOROLAC 30 MG/ML VIAL. IV ONE (21:40)
[2018-10-11] MEDS: IOHEXOL 300 MG/ML 75 ML VIAL. IV ONE (22:34)
[2018-10-11] MEDS: IOHEXOL 240 MG/ML 50ML VIAL. PO ONE (22:34)
--- NOTE | 2018-10-11 23:03 | RAD ---
Acute Abdominal Series: Technique: PA view of the chest and supine and upright views of the abdomen were obtained. History: Pain, hysterectomy and appendectomy. Comparison: None. Findings: The lungs and pleural margins are clear. There is air and stool scattered throughout the colon. There is a paucity small bowel gas There is no free air. Impression: Nonobstructive bowel gas pattern. Electronically signed by: Ronal Qureshi III, MD (10/11/2018 11:00 PM) [facility]
--- NOTE | 2018-10-11 23:23 | RAD ---
CT SCAN OF THE ABDOMEN AND PELVIS WITH IV CONTRAST. History: Prior hysterectomy and appendectomy and cyst removed from ovaries has bladder mesh and slight procedure and presents with pain Comparison:None. Procedure: Contiguous axial images of the abdomen and pelvis were performed after the administration of 75 cc of Isovue 370 IV contrast and oral contrast. CT Abdomen with contrast: Findings: Liver: Unremarkable Spleen: Unremarkable Pancreas: Unremarkable Adrenal Glands: Unremarkable Kidneys: Unremarkable There is no mass or lymphadenopathy. There is no free air. There is no free fluid. Impression: No acute findings. End Impression CT Pelvis with Contrast: Findings: The urinary bladder appears normal. There is no free fluid. There is no lymphadenopathy. There is a dominant follicle in the right ovary. Left ovary and uterus are not seen. Impression: No acute findings. PQRS Compliance Statement: One or more of the following individualized dose reduction techniques were utilized for this examination: 1. Automated exposure control 2. Adjustment of the mA and/or kV according to patient size 3. Use of iterative reconstruction technique Electronically signed by: Ronal Qureshi III, MD (10/11/2018 11:20 PM) [facility]
[2018-10-12 00:22] VITALS: BP 90/52
[2018-10-12] MEDS ORDERED: CEPH-264 PO (00:32)
[2018-10-12] MEDS ORDERED: HYDR-1179 PO (00:32)
== END 2018-10-12 00:50 | disposition home or self-care (01) ==
LOC: ER 18:13
DX: N83.201 Unspecified ovarian cyst, right side (principal); J40 Bronchitis, not specified as acute or chronic; R42 Dizziness and giddiness; G43.909 Migraine, unspecified, not intractable, without status migrainosus; F17.200 Nicotine dependence, unspecified, uncomplicated; F12.10 Cannabis abuse, uncomplicated; F15.10 Other stimulant abuse, uncomplicated; Z87.440 Personal history of urinary (tract) infections
CPT/HCPCS: 36415; 72131; 74022; 74177; 80048; 80076; 80307; 81001; 82553; 83690; 83735; 84443; 84484; 85025; 85379; 85610; 85651; 85730; 93005; 96361; 96365; 96375; 99285; J0696; J1885; J2405; J7120; Q9966; Q9967

== ENCOUNTER 2018-10-30 16:32 | Emergency (ER) | payer SELFPAY ==
--- NOTE | 2018-10-30 17:13 | PHYS DOC ---
Past History Past Medical History: No Pertinent History, Migraines, UTI Past Surgical History: Hysterectomy Smoking: Greater than 1 pack/day Alcohol Use: Heavy Drug Use: None, Amphetamine, Marijuana Adult General Chief Complaint Chief Complaint: MULTIPLE COMPLAINTS HPI HPI Patient is a 43-year-old female that presents with a fever and productive cough. The fever was several days ago. The cough is been going on for several weeks. It started as a dry cough when she was seen last month. She was prescribed Keflex. She developed a reaction to the Keflex with a rash and skin sloughing off. She did not follow up with anyone for this. She stopped the Keflex after 2 days. She now reports that she has a productive cough and nasal congestion. Additionally she has some dental pain on her left upper mouth. Worse with chewing. No drainage. No difficulty swallowing. Her home medicines have not improved any of the discomfort. Symptoms are moderate to severe in intensity.[] Review of Systems Review of Systems Constitutional: Denies chills [] Eyes: Denies change in visual acuity, redness, or eye pain [] HENT: Denies sore throat [] Respiratory: See history of present illness[] Cardiovascular: No chest pain or palpitations[] GI: Denies abdominal pain, nausea, vomiting, bloody stools or diarrhea [] : Denies dysuria or hematuria [] Musculoskeletal: Denies back pain or joint pain [] Integument: Denies rash or skin lesions [] Neurologic: Denies headache, focal weakness or sensory changes [] Endocrine: Denies polyuria or polydipsia [] All other systems were reviewed and found to be within normal limits, except as documented in this note. Allergies Allergies Allergies Coded Allergies Type Severity Reaction Last Updated Verified No Known Drug Allergies 10/11/18 No Physical Exam Physical Exam Constitutional: Well developed, well nourished, no acute distress, non-toxic appearance. [] HENT: Normocephalic, atraumatic, bilateral external ears normal, oropharynx moist, no oral exudates, nose with clear rhinorrhea. No abscess appreciated in the oropharynx. Uvula is midline. There is some tenderness to percussion over teeth 15 and 16.. [] Eyes: PERRLA, EOMI, conjunctiva normal, no discharge. [] Neck: Normal range of motion, no tenderness, supple, no stridor. [] Cardiovascular:Heart rate regular rhythm, no murmur [] Lungs & Thorax: Bilateral breath sounds clear to auscultation [] Abdomen: Bowel sounds normal, soft, no tenderness, no masses, no pulsatile masses. [] Skin: Warm, dry, no erythema, no rash. [] Back: No tenderness, no CVA tenderness. [] Extremities: No tenderness, no cyanosis, no clubbing, ROM intact, no edema. [] Neurologic: Alert and oriented X 3, normal motor function, normal sensory function, no focal deficits noted. [] Psychologic: Affect normal, judgement normal, mood normal. [] Current Patient Data Vital Signs Vital Signs Date Time Temp Pulse Resp B/P (MAP) Pulse Ox O2 Delivery O2 Flow Rate FiO2 10/30/18 16:53 98.3 86 22 96 Room Air EKG EKG [] Radiology/Procedures Radiology/Procedures Chest x-ray shows no infiltrate, no effusion, no pneumothorax, no acute changes from 09/27/2016.[] Course & Med Decision Making Course & Med Decision Making Pertinent Labs and Imaging studies reviewed. (See chart for details) Medical decision making: Patient with cough and dental pain. There is no evidence of an infiltrate. Given her recent reaction to Keflex, will hold on giving penicillin. We will treat the cough symptomatically. Counseled patient on smoking cessation. There is no evidence of hypoxia.[] Dragon Disclaimer Dragon Disclaimer This electronic medical record was generated, in whole or in part, using a voice recognition dictation system. Departure Departure: Impression: Primary Impression: Cough Additional Impressions: Tobacco abuse Pain, dental Disposition: 01 HOME, SELF-CARE Condition: IMPROVED Referrals: PCP,NO (PCP) Patient Instructions: Cough, Adult, Dental Pain, Smoking Cessation Additional Instructions: Stop smoking! Follow-up with your regular doctor in 2 days. If you do not have a regular doctor list of local clinics will be provided for you. Return to the ER if worsening pain, difficulty breathing, or any other concerns. Scripts Albuterol Sulfate (VENTOLIN HFA INHALER) 18 Gm Hfa.aer.ad 2 PUFF IH PRN Q4HRS PRN for FOR ASTHMA, #1 INHALER 0 Refills Prov: ROB DUMAS DO 10/30/18 Meloxicam (MELOXICAM) 7.5 Mg Tablet 7.5 MG PO DAILY for PAIN, #20 TAB Prov: ROB DUMAS DO 10/30/18 Clindamycin Hcl (CLINDAMYCIN HCL) 150 Mg Capsule 2 CAP PO QID for dental pain/infection, #40 CAP Prov: ROB DUMAS DO 10/30/18 D-Methorphan Hb/Prometh Hcl (PROMETHAZINE-DM SYRUP) 118 Ml Syrup 5 ML PO PRN Q4HRS for CONGESTION, #120 ML Prov: ROB DUMAS DO 10/30/18 Problem Qualifiers ROB DUMAS DO October 30, 2018 17:12
[2018-10-30] MEDS ORDERED: CLIN150C14 PO (17:30)
[2018-10-30] MEDS ORDERED: MELO7.5T29 PO (17:30)
[2018-10-30] MEDS ORDERED: D-ME118S2 PO (17:30)
[2018-10-30] MEDS ORDERED: ALBU2.5V8 IH (17:30)
[2018-10-30 17:50] VITALS: BP 118/71
--- NOTE | 2018-10-30 17:58 | RAD ---
PA and lateral chest radiographs 10/30/2018 Clinical History: Cough and fever. PA and lateral digital radiographs of the chest were obtained. Comparison study is dated 09/27/2016. The cardiac and mediastinal silhouettes are within normal limits in size and configuration. A focal area of atelectasis and/or infiltrate is seen involving the anterior medial inferior aspect of the right lower lobe. The left lung is clear. No pneumothorax or pleural effusion is seen. The osseous structures are grossly intact. IMPRESSION: Focal area of infiltrate/atelectasis is seen involving the right lower lobe. Electronically signed by: Shady Eden MD (10/30/2018 5:56 PM) [facility]
== END 2018-10-30 17:50 | disposition home or self-care (01) ==
LOC: ER 16:32
DX: R05 Cough (principal); K08.89 Other specified disorders of teeth and supporting structures; R50.9 Fever, unspecified; R09.81 Nasal congestion; G43.909 Migraine, unspecified, not intractable, without status migrainosus; F17.200 Nicotine dependence, unspecified, uncomplicated; F10.20 Alcohol dependence, uncomplicated; Z87.440 Personal history of urinary (tract) infections; Y90.9 Presence of alcohol in blood, level not specified
CPT/HCPCS: 71046; 99283; 99284

== ENCOUNTER 2019-01-02 09:06 | Emergency (ER) | payer SELFPAY ==
[~2019-01-02] VITALS: Ht 162.6 cm; Wt 60.8 kg
[~2019-01-02 09:06] MED LIST changes: +ALBU2.5V8 IH; +D-ME118S2 PO; +MELO7.5T29 PO
[2019-01-02] MEDS ORDERED: LIDOCAINE 2% 20 ML VIAL. IJ ONE (09:30)
[2019-01-02] MEDS ORDERED: AMOX1TAB61 PO (09:35)
[2019-01-02] MEDS ORDERED: HYDR-3165 PO (09:35)
--- NOTE | 2019-01-02 09:35 | PHYS DOC ---
Past History Past Medical History: No Pertinent History Past Surgical History: Appendectomy, Hysterectomy, Tubal ligation Smoking: Greater than 1 pack/day Additional Smoking Information: 1 PPD Alcohol Use: Occasionally Drug Use: None Adult General Chief Complaint Chief Complaint: DENTAL PROBLEM HPI HPI 43-year-old female presents with left upper dental pain. Patient states the pain started yesterday and has intensified significantly. She has tried topical medication, herbal medications, ibuprofen. None seem to help. She feels like her gums are inflamed. She has had dental caries in this area. She denies fever or chills. She denies trauma. Review of Systems Review of Systems Constitutional: Denies fever or chills [] Eyes: Denies change in visual acuity, redness, or eye pain [] HENT: Denies nasal congestion or sore throat. Dental pain [] Respiratory: Denies cough or shortness of breath [] Cardiovascular: No additional information not addressed in HPI [] GI: Denies abdominal pain, nausea, vomiting, bloody stools or diarrhea [] : Denies dysuria or hematuria [] Musculoskeletal: Denies back pain or joint pain [] Integument: Denies rash or skin lesions [] Neurologic: Denies headache, focal weakness or sensory changes [] Endocrine: Denies polyuria or polydipsia [] All other systems were reviewed and found to be within normal limits, except as documented in this note. Current Medications Current Medications Current Medications Medications (Trade) Dose Ordered Sig/Raad Start Time Stop Time Status Last Admin Dose Admin Lidocaine HCl 20 ml 1X ONCE 01/02/19 09:30 01/02/19 09:31 UNV Allergies Allergies Allergies Coded Allergies Type Severity Reaction Last Updated Verified No Known Drug Allergies 10/11/18 No Physical Exam Physical Exam Constitutional: Well developed, well nourished, no acute distress, non-toxic appearance. [] HENT: Normocephalic, atraumatic, bilateral external ears normal, oropharynx moist, no oral exudates, nose normal. Left upper quadrant of the mouth has dental caries and tenderness of palpation. No palpable abscess.[] Eyes: PERRLA, EOMI, conjunctiva normal, no discharge. [] Neck: Normal range of motion, no tenderness, supple, no stridor. [] Cardiovascular:Heart rate regular rhythm, no murmur [] Lungs & Thorax: Bilateral breath sounds clear to auscultation [] Abdomen: Bowel sounds normal, soft, no tenderness, no masses, no pulsatile masses. [] Skin: Warm, dry, no erythema, no rash. [] Back: No tenderness, no CVA tenderness. [] Extremities: No tenderness, no cyanosis, no clubbing, ROM intact, no edema. [] Neurologic: Alert and oriented X 3, normal motor function, normal sensory function, no focal deficits noted. [] Psychologic: Affect normal, judgement normal, mood normal. [] Current Patient Data Vital Signs Vital Signs Date Time Temp Pulse Resp B/P (MAP) Pulse Ox O2 Delivery O2 Flow Rate FiO2 01/02/19 09:18 97.8 76 17 98 Room Air EKG EKG [] Radiology/Procedures Radiology/Procedures [] Course & Med Decision Making Course & Med Decision Making Pertinent Labs and Imaging studies reviewed. (See chart for details) The patient doesn't appear to be very uncomfortable or dental pain. She has requ ested a local injection to numb the area. I will also place her on Augmentin for 7 days and give her a short course of Goessel for home. Her narcotic registry record only shows 2 short prescriptions in the last couple of years. She is stable for discharge at this time. [] Dragon Disclaimer Dragon Disclaimer This electronic medical record was generated, in whole or in part, using a voice recognition dictation system. Departure Departure: Impression: Primary Impression: Pain due to dental caries Disposition: HOME, SELF-CARE Condition: STABLE Referrals: PCP,NO (PCP) Patient Instructions: Dental Abscess Scripts Hydrocodone Bit/Acetaminophen (NORCO 5-325 TABLET) 1 Each Tablet 1 TAB PO PRN Q6HRS PRN for PAIN, #14 TAB 0 Refills Prov: AUBREY NELSON DO 01/02/19 Amoxicillin/Potassium Clav (AUGMENTIN 875-125 TABLET) 1 Each Tablet 1 TAB PO BID for dental infection, #14 TAB Prov: AUBREY NELSON DO 01/02/19 AUBREY NELSON DO Jan 02, 2019 09:35
[2019-01-02] MEDS ORDERED: HYDROcodone/APAP 5/325MG 1 TAB TABLET PO ONE (10:30)
[2019-01-02] MEDS ORDERED: AMOXICILLIN/K CLAV 875/125MG TABLET. PO ONE (10:30)
[2019-01-02 10:35] VITALS: BP 133/74
== END 2019-01-02 10:35 | disposition home or self-care (01) ==
LOC: ER 09:06
DX: K02.9 Dental caries, unspecified (principal); Z90.89 Acquired absence of other organs; F17.200 Nicotine dependence, unspecified, uncomplicated
CPT/HCPCS: 96372; 99283; J2001

== ENCOUNTER 2019-01-04 15:33 | Emergency (ER) | payer SELFPAY ==
[~2019-01-04] VITALS: Ht 162.6 cm; Wt 60.8 kg
[~2019-01-04 15:33] MED LIST changes: +AMOX1TAB61 PO; -D-ME118S2 PO; +PROM118S9 PO
[2019-01-04] MEDS ORDERED: CLINDAMYCIN 600MG PREMIX 50 ML IV ONE (16:15)
[2019-01-04] MEDS ORDERED: LIDOCAINE 2%/EPI 1:100,000 20 ML VIAL. IJ ONE (17:00)
--- NOTE | 2019-01-04 18:05 | PHYS DOC ---
Past History Past Medical History: No Pertinent History Past Surgical History: Appendectomy, Hysterectomy, Tubal ligation Smoking: Greater than 1 pack/day Alcohol Use: Occasionally Drug Use: None Adult General Chief Complaint Chief Complaint: DENTAL PROBLEM HPI HPI 43-year-old female returns to the emergency room with continued left-sided dental pain and now concern for abscess. The patient now has a large lump on the left side of her hard palate. The patient continues to have a lot of dental pain. She has been taking the Augmentin that was prescribed for previous ED visit a few days ago. She's not been able to get into a dentist yet. She denies fever or chills. The pain has been uncontrollable at home. Patient denies any new trauma or other complaints. Review of Systems Review of Systems Constitutional: Denies fever or chills [] Eyes: Denies change in visual acuity, redness, or eye pain [] HENT: Denies nasal congestion or sore throat. Dental pain, abscess [] Respiratory: Denies cough or shortness of breath [] Cardiovascular: No additional information not addressed in HPI [] GI: Denies abdominal pain, nausea, vomiting, bloody stools or diarrhea [] : Denies dysuria or hematuria [] Musculoskeletal: Denies back pain or joint pain [] Integument: Denies rash or skin lesions [] Neurologic: Denies headache, focal weakness or sensory changes [] Endocrine: Denies polyuria or polydipsia [] All other systems were reviewed and found to be within normal limits, except as documented in this note. Current Medications Current Medications Current Medications Medications (Trade) Dose Ordered Sig/[facility] Start Time Stop Time Status Last Admin Dose Admin Clindamycin Phosphate 50 ml @ 100 mls/hr 1X ONCE 01/04/19 16:15 01/04/19 16:44 DC 01/04/19 16:48 100 MLS/HR Fentanyl Citrate (Fentanyl 2ml Vial) 100 mcg 1X ONCE 01/04/19 17:30 01/04/19 17:31 DC 01/04/19 17:27 100 MCG Lidocaine/ Epinephrine (Xylocaine 2%-Epi 1:100,000) 20 ml 1X ONCE 01/04/19 17:00 01/04/19 17:01 DC 01/04/19 17:00 20 ML Allergies Allergies Allergies Coded Allergies Type Severity Reaction Last Updated Verified No Known Drug Allergies 10/11/18 No Physical Exam Physical Exam Constitutional: Well developed, well nourished, no acute distress, non-toxic appearance. [] HENT: Normocephalic, atraumatic, bilateral external ears normal, oropharynx moist, nose normal. 3 cm x 3 cm palpable abscess of the left hard palate. Extremely tender.[] Eyes: PERRLA, EOMI, conjunctiva normal, no discharge. [] Neck: Normal range of motion, no tenderness, supple, no stridor. [] Cardiovascular:Heart rate regular rhythm, no murmur [] Lungs & Thorax: Bilateral breath sounds clear to auscultation [] Abdomen: Bowel sounds normal, soft, no tenderness, no masses, no pulsatile masses. [] Skin: Warm, dry, no erythema, no rash. [] Back: No tenderness, no CVA tenderness. [] Extremities: No tenderness, no cyanosis, no clubbing, ROM intact, no edema. [] Neurologic: Alert and oriented X 3, normal motor function, normal sensory function, no focal deficits noted. [] Psychologic: Affect normal, judgement normal, mood normal. [] Current Patient Data Vital Signs Vital Signs Date Time Temp Pulse Resp B/P (MAP) Pulse Ox O2 Delivery O2 Flow Rate FiO2 01/04/19 17:39 85 18 93 01/04/19 17:27 Room Air 01/04/19 15:59 98.3 EKG EKG [] Radiology/Procedures Radiology/Procedures [] Course & Med Decision Making Course & Med Decision Making Pertinent Labs and Imaging studies reviewed. (See chart for details) Patient had an I&D performed. See note for more details. We did have to use moderate sedation due to the level of pain the patient experienced, despite multiple doses of IV fentanyl. She was just unable to tolerate the procedure without more sedation. The patient was given IV clindamycin in the emergency room. I will discharge her on clindamycin oral. She is again encouraged to see a dentist as soon as possible as the likely source is an infected tooth root. She is stable for discharge at this time. [] Dragon Disclaimer Dragon Disclaimer This electronic medical record was generated, in whole or in part, using a voice recognition dictation system. RISKS/ALTERNATIVES Risks/Alternatives Risks and alternatives of this type of sedation and procedure discussed with: RISK/ALTERNATIVES DISCUSSED: Patient H & P ON CHART H & P H & P on chart and reviewed for co-morbid conditions and appropriate labs. H&P ON CHART: Yes STATUS PREG STATUS ASSESSED: Yes MEDS/ALLERGIES REVIEWED Meds/Allergies Reviewed Medications and Allergies including time and route of recently administered narcotics and sedatives. MEDS/ALLERGIES REVIEWED: Yes ASA RATING ASA RATING: II AIRWAY ASSESSMENT Airway Assessment Airway patency, oral function limitations, presence of caps, crowns, dentures, partials, and ability to extend neck assessed. AIRWAY ASSESSMENT: Yes MALLAMPATI SCORE MALLAMPATI SCORE: I PRE-SEDATION ASSESSMENT PRE-SEDATION PHYSICAL: Yes Incision and Drainage Indication: Abscess of the left hard palate Procedure: T verbal consent was obtained from the patient for incision and drainage of the oral abscess of the left hard palate. The patient was anestheti zed with regional as well as local anesthesia with a mixture of 2% lidocaine with epinephrine and bupivacaine. Once anesthesia was achieved a 2 mm incision was made in the abscess. Was purulent fluid expressed. A wound culture was sent. The patient was unable to tolerate compression of the abscess. The incision sites sealed quickly. A second incision was made, but the patient still could not tolerate exploration of the wound or compression of the abscess. It did not appear to be shrinking though there was drainage. That time I decided to use moderate sedation with ketamine. The patient was moved to the trauma room. Written consent for moderate sedation was obtained. A timeout was performed. The patient was given 120 mg of ketamine. She was additionally given 100 �g of fentanyl. Once she was properly sedated, I made a 6 mm incision in the abscess. Further purulent material was expressed. I was able to compress the abscess at that time. The abscess was explored with a sterile Q-tip. All loculations were broken up. The patient tolerated the procedure well with sedation. She was given IV clindamycin. The patient tolerated the procedure poorly without sedation. No complications with sedation. Complications: Moderate sedation required. Departure Departure: Impression: Primary Impression: Dental infection Additional Impression: Cellulitis and abscess of mouth Disposition: 01 HOME, SELF-CARE Condition: STABLE Referrals: PCP,NO (PCP) Patient Instructions: Abscess, Care After, Abscess, Perineal Scripts Hydrocodone Bit/Acetaminophen (NORCO 7.5-325 TABLET) 1 Each Tablet 1 TAB PO PRN Q6HRS PRN for PAIN, #14 TAB 0 Refills Prov: AUBREY NELSON DO 01/04/19 Clindamycin Hcl (CLINDAMYCIN HCL) 300 Mg Capsule 1 CAP PO TID for oral abscess, #21 CAP Prov: AUBREY NELSON DO 01/04/19 Problem Qualifiers AUBREY NELSON DO Jan 04, 2019 18:05
[2019-01-04] MEDS ORDERED: KETAMINE HCL 500 MG/10 ML VIAL. IV ONE (18:15)
[2019-01-04] MEDS ORDERED: HYDR-3166 PO (23:08)
[2019-01-04] MEDS ORDERED: CLIN300C8 PO (23:08)
[2019-01-04 23:12] VITALS: BP 128/63
[2019-01-04] MEDS ORDERED: HYDROcodone/APAP 7.5/325MG 1 TAB TABLET PO ONE (23:30)
== END 2019-01-04 23:22 | disposition home or self-care (01) ==
LOC: ER 15:33
DX: K12.2 Cellulitis and abscess of mouth (principal); K04.7 Periapical abscess without sinus; F17.200 Nicotine dependence, unspecified, uncomplicated
CPT/HCPCS: 42000; 87070; 96365; 99285; J3010; J3490; 99152; 99284-25

== ENCOUNTER 2019-10-16 01:47 | Emergency (ER) | payer SELFPAY ==
[~2019-10-16] VITALS: Ht 162.6 cm; Wt 57.8 kg
[2019-10-16 01:47] VITALS: BP 109/56
[~2019-10-16 01:47] MED LIST changes: +CLIN300C8 PO; +HYDR-3166 PO; +PROM118S10 PO; -PROM118S9 PO
--- NOTE | 2019-10-16 02:05 | PHYS DOC ---
Past History Past Medical History: No Pertinent History, Ovarian Cyst Past Surgical History: Appendectomy, Hysterectomy, Tubal ligation Additional Past Surgical Histo: transvaginal mesh Smoking: Greater than 1 pack/day Alcohol Use: Occasionally Drug Use: Cocaine (postive test 2019) General Adult EDM: Chief Complaint: diffuse abdominal pain HPI: HPI: Patient is a 44 year old female who presents for evaluation of moderate diffuse abdominal discomfort. Symptoms been progressing for the past 3 days. Patient was tearful and upset on arrival due to the severe pain. Patient also is complaining of headache and sweats but she is not running a fever. Patient denies any black, bloody or tarry stools. Patient denies any vaginal complaints. Patient has a prior history of a hysterectomy as well as a transvaginal mesh implant. Patient requesting pain medication on arrival [] Review of Systems: Review of Systems: Constitutional: Denies fever or chills Eyes: Denies change in visual acuity HENT: Denies nasal congestion or sore throat Respiratory: Denies cough or shortness of breath Cardiovascular: Denies chest pain or edema GI: Diffuse abdominal pain, has nausea, vomiting, denied bloody stools or diarrhea : Denies dysuria Musculoskeletal: Has back pain, no joint pain Integument: Denies rash Neurologic: Has headache, denied focal weakness or sensory changes Endocrine: Denies polyuria or polydipsia Lymphatic: Denies swollen glands Psychiatric: Denies depression or anxiety Heart Score: Risk Factors: Risk Factors: DM, Current or recent (<one month) smoker, HTN, HLP, family history of CAD, obesity. Risk Scores: Score 0 - 3: 2.5% MACE over next 6 weeks - Discharge Home Score 4 - 6: 20.3% MACE over next 6 weeks - Admit for Clinical Observation Score 7 - 10: 72.7% MACE over next 6 weeks - Early Invasive Strategies Allergies: Allergies: Allergies Coded Allergies Type Severity Reaction Last Updated Verified No Known Drug Allergies 10/11/18 No Physical Exam: PE: Constitutional: Well developed, well nourished, moderate distress, highly anxious. [] HENT: Normocephalic, atraumatic, bilateral external ears normal, oropharynx moist, no oral exudates, nose normal. [] Eyes: PERRL, EOMI, conjunctiva normal, no discharge. [] Neck: Normal range of motion, no tenderness, supple, no stridor. [] Cardiovascular:Heart rate regular rhythm, no murmur [] Lungs & Thorax: Bilateral breath sounds clear to auscultation [] Abdomen: Abdomen soft, diffusely tender, no masses, no pulsatile masses. [] Skin: Warm, dry, no erythema, no rash. [] Back: No tenderness, no CVA tenderness. [] Extremities: No tenderness, no cyanosis, no clubbing, ROM intact, no edema. [] Neurologic: Alert and oriented X 3, normal motor function, normal sensory function, no focal deficits noted. [] Psychologic: Affect normal, judgement normal, mood normal. [] EKG: EKG: EKG read at nh 2:50 AM showed sinus tachycardia rate 106, some ST segment depression in lead III, not STEMI, nonspecific ST segment changes normal axis [] Radiology/Procedures: Radiology/Procedures: [place] [address] IMAGING REPORT Signed PATIENT: ANDREA DOWNS ACCOUNT: [id number] : 1975 LOCATION: ER AGE: 44 SEX: F EXAM STATUS: REG ER ORD. PHYSICIAN: LAMONTE MCKEON DO REASON: diffuse severe abd pain, leukocytosis, OMNI 300, 75ml PROCEDURE: CT ABD PELV W/ IV CONTRST ONLY Study: CT abdomen/pelvis with intravenous contrast Indication: Diffuse severe abdominal pain. Leukocytosis. Comparison: 10/11/2018 Technique: Helical CT imaging performed of the abdomen and pelvis after the intravenous administration of 75 cc Omnipaque 300 contrast. Sagittal and coronal reformats were obtained. One or more of the following individualized dose reduction techniques were utilized for this examination: 1. Automated exposure control 2. Adjustment of the mA and/or kV according to patient size 3. Use of iterative reconstruction technique. Findings: Chest: No acute abnormality. Liver: Mild fatty infiltration along the falciform ligament. Gallbladder/Biliary Tree: Unremarkable. Pancreas: Unremarkable. Spleen: Within normal limits. Adrenal Glands: Unchanged small adrenal gland nodule on the right measuring approximately 1 cm. Kidneys/Ureters/Bladder: Heterogeneous renal parenchymal attenuation bilaterally in keeping with known nephritis. Uroepithelial enhancement bilaterally. Mild circumferential bladder wall thickening. Reproductive Organs: No significant interval change noting that a right ovarian cyst present on the comparison is less well delineated on this study. Colon: Unremarkable. Mild volume well-formed stool. Appendix: Surgically absent. Small Bowel: Nonobstructed. Stomach: Not well evaluated due to underdistention. Vasculature: Distal abdominal aortic and right more so than left iliac calcified and noncalcified atheromatous plaque. Lymph Nodes: Unremarkable. Peritoneum and Body Wall: Unremarkable. Bones: No acute or aggressive osseous process. Redemonstrated L4 hemangioma and sclerosis at the anterior/superior L3 vertebral body. Miscellaneous: None. Impression: 1. Bilateral uroepithelial enhancement and patchy renal parenchymal hypoattenuation in keeping with pyelonephritis. No obstructing renal stone. 2. No change in size of a 1 cm adrenal gland nodule on the right. No follow-up imaging is needed per consensus recommendation based on stability. Electronically signed by: ERICH DRAKE MD (10/16/2019 4:14 AM) [id number] DICTATED AND SIGNED BY: ERICH DRAKE MD DATE: 10/16/19413 CC: PCPSHAKEEL; LAMONTE MCKEON DO ~ [] Course & Med Decision Making: Course & Med Decision Making Pertinent Labs and Imaging studies reviewed. (See chart for details) 0300 stable, patient just went to the bathroom and was able to write a urine sample. Patient states that although she was initially feeling better her pain is now returned. Urinalysis results not yet known. Patient does have a noted leukocytosis remainder of chemistries essentially unremarkable 0420 stable, case reviewed with patient at length. CT abdomen pelvis was stable and did show some nephritis. Patient has pyelonephritis. No obstruction or other acute CT findings. Pain is currently controlled. We discussed options and patient wishes to be discharged. Prescription for limited number of [place], Zofran and Keflex given. Detailed follow-up instructions given and when to return if worsen. Patient states she needs to find a family physician to establish care[] Docon Disclaimer: Kavon Disclaimer: This electronic medical record was generated, in whole or in part, using a voice recognition dictation system. Departure Departure: Impression: Primary Impression: Pyelonephritis Additional Impression: Nausea & vomiting Disposition: HOME, SELF-CARE Condition: STABLE Referrals: PCPSHAKEEL (PCP) LEMUEL ZHAO MD Patient Instructions: Pyelonephritis, Adult Additional Instructions: Drink plenty fluids, rest, see a family doctor right away. You have a kidney infection that will need close follow-up. Take medications as directed, return if worsen Scripts Phenazopyridine Hcl (PYRIDIUM) 100 Mg Tablet 1 TAB PO TID for urinary discomfort for 2 Days, #6 TAB 0 Refills Prov: LAMONTE MCKEON DO 10/16/19 Cephalexin (KEFLEX) 250 Mg Capsule 1 CAP PO QID for UTI for 10 Days, #40 CAP 0 Refills Prov: LAMONTE MCKEON DO 10/16/19 Ondansetron Hcl (ZOFRAN) 4 Mg Tablet 1 TAB PO PRN Q6HRS PRN for NAUSEA, #12 TAB Prov: LAMONTE MCKEON DO 10/16/19 Hydrocodone Bit/Acetaminophen (NORCO 5-325 TABLET) 1 Each Tablet 1 TAB PO PRN Q6HRS PRN for PAIN, #20 TAB 0 Refills Prov: LAMONTE MCKEON DO 10/16/19 LAMONTE MCKEON DO Oct 16, 2019 02:05
[2019-10-16 02:28] LABS: BASO # 0.1 x10^3/uL (0.0-0.2); BASO % 1 % (0-3); EOS # 0.1 x10^3/uL (0.0-0.7); EOS % 0 % (0-3); HEMATOCRIT 41.9 % (36.0-47.0); HEMOGLOBIN 14.2 g/dL (12.0-15.5); LYMPH # 1.7 x10^3/uL (1.0-4.8); LYMPH % 9 % (24-48); MEAN CORPUSCULAR HEMOGLOBIN 31 pg (25-35); MEAN CORPUSCULAR HGB CONC 34 g/dL (31-37); MEAN CORPUSCULAR VOLUME 92 fL (79-100); MONO # 1.8 x10^3/uL (0.0-1.1); MONO % 9 % (0-9); NEUT # 15.9 x10^3uL (1.8-7.7); NEUT % 81 % (31-73); PLATELET COUNT 261 x10^3/uL (140-400); RED BLOOD COUNT 4.57 x10^6/uL (3.50-5.40); RED CELL DISTRIBUTION WIDTH 12.2 % (11.5-14.5); WHITE BLOOD COUNT 19.7 x10^3/uL (4.0-11.0)
[2019-10-16] MEDS ORDERED: IV NORMAL SALINE 1,000ML 1,000 ML IV ONE (02:30)
[2019-10-16] MEDS ORDERED: ONDANSETRON PF 4 MG/2 ML VIAL. IVP ONE (02:30)
[2019-10-16] MEDS ORDERED: DICYCLOMINE 20 MG/2 ML AMPUL. IM ONE (02:30)
[2019-10-16 02:44] LABS: CALCIUM 9.3 mg/dL (8.5-10.1); CREATININE 0.6 mg/dL (0.6-1.0); GFR 108.1; POTASSIUM 3.2 mmol/L (3.5-5.1)
[2019-10-16 02:50] LABS: ALBUMIN 3.4 g/dL (3.4-5.0); ALBUMIN/GLOBULIN RATIO 0.7 (1.0-1.7); TOTAL BILIRUBIN 0.1 mg/dL (0.2-1.0); TOTAL PROTEIN 8.2 g/dL (6.4-8.2)
[2019-10-16 03:00] LABS: % BANDS 9 % (0-9); % LYMPHS 11 % (24-48); % MONOS 5 % (0-10); % SEGS 75 % (35-66); PLT ESTIMATE ADEQUATE (ADEQUATE)
[2019-10-16] MEDS ORDERED: CONTRAST GIVEN. MC PRN (03:15)
[2019-10-16] MEDS ORDERED: IOHEXOL 300 MG/ML 75 ML VIAL. IV ONE (03:30)
[2019-10-16 03:32] LABS: BARBITURATES NEG (NEG); BENZODIAZEPINES NEG (NEG); CANNABINOIDS NEG (NEG); COCAINE NEG (NEG); METHADONE NEG (NEG); OPIATES NEG (NEG); PHENCYCLIDINE NEG (NEG)
[2019-10-16 03:34] LABS: BACTERIA,URINE MOD /HPF (0-FEW); BILIRUBIN,URINE NEG (NEG); CLARITY,URINE HAZY; COLOR,URINE YELLOW; GLUCOSE,URINE NEG (NEG); NITRITE,URINE NEG (NEG); RBC,URINE OCC /HPF (0-2); SQUAMOUS EPITHELIAL CELL,UR OCC /LPF; UROBILINOGEN,URINE 0.2 mg/dL (0.2 mg/dL); WBC,URINE >40 /HPF (0-4)
[2019-10-16 03:38] LABS: AMPHETAMINE/METHAMPHETAMINE NEG (NEG)
--- NOTE | 2019-10-16 04:17 | RAD ---
Study: CT abdomen/pelvis with intravenous contrast Indication: Diffuse severe abdominal pain. Leukocytosis. Comparison: 10/11/2018 Technique: Helical CT imaging performed of the abdomen and pelvis after the intravenous administration of 75 cc Omnipaque 300 contrast. Sagittal and coronal reformats were obtained. One or more of the following individualized dose reduction techniques were utilized for this examination: 1. Automated exposure control 2. Adjustment of the mA and/or kV according to patient size 3. Use of iterative reconstruction technique. Findings: Chest: No acute abnormality. Liver: Mild fatty infiltration along the falciform ligament. Gallbladder/Biliary Tree: Unremarkable. Pancreas: Unremarkable. Spleen: Within normal limits. Adrenal Glands: Unchanged small adrenal gland nodule on the right measuring approximately 1 cm. Kidneys/Ureters/Bladder: Heterogeneous renal parenchymal attenuation bilaterally in keeping with known nephritis. Uroepithelial enhancement bilaterally. Mild circumferential bladder wall thickening. Reproductive Organs: No significant interval change noting that a right ovarian cyst present on the comparison is less well delineated on this study. Colon: Unremarkable. Mild volume well-formed stool. Appendix: Surgically absent. Small Bowel: Nonobstructed. Stomach: Not well evaluated due to underdistention. Vasculature: Distal abdominal aortic and right more so than left iliac calcified and noncalcified atheromatous plaque. Lymph Nodes: Unremarkable. Peritoneum and Body Wall: Unremarkable. Bones: No acute or aggressive osseous process. Redemonstrated L4 hemangioma and sclerosis at the anterior/superior L3 vertebral body. Miscellaneous: None. Impression: 1. Bilateral uroepithelial enhancement and patchy renal parenchymal hypoattenuation in keeping with pyelonephritis. No obstructing renal stone. 2. No change in size of a 1 cm adrenal gland nodule on the right. No follow-up imaging is needed per consensus recommendation based on stability. Electronically signed by: ERICH DRAKE MD (10/16/2019 4:14 AM) [id number]
[2019-10-16] MEDS ORDERED: IV NORMAL SALINE 50ML 50 ML ONE (04:27)
[2019-10-16] MEDS ORDERED: cefTRIAXone SODIUM 1 GM VIAL ONE (04:27)
[2019-10-16] MEDS ORDERED: ONDA4TAB7 PO (04:29)
[2019-10-16] MEDS ORDERED: HYDR-3165 PO (04:29)
[2019-10-16] MEDS ORDERED: PHEN100T82 PO (04:31)
[2019-10-16] MEDS ORDERED: CEPH-263 PO (04:31)
[2019-10-16] MEDS ORDERED: PHENAZOPYRIDINE 200 MG TABLET. PO ONE (05:00)
== END 2019-10-16 04:40 | disposition home or self-care (01) ==
LOC: ER 01:47
DX: N12 Tubulo-interstitial nephritis, not specified as acute or chronic (principal); R11.2 Nausea with vomiting, unspecified; F17.200 Nicotine dependence, unspecified, uncomplicated; Z90.89 Acquired absence of other organs; Z98.51 Tubal ligation status; Z90.710 Acquired absence of both cervix and uterus
CPT/HCPCS: 36415; 74177; 80053; 80307; 81001; 83690; 85007; 85025; 96361; 96372; 96374; 96375; 99285; J0500; J0696; J2060; J2405; J3010; Q9967; J7030

== ENCOUNTER 2020-03-25 12:50 | Emergency (ER) | payer SELFPAY ==
[~2020-03-25] VITALS: Ht 162.6 cm; Wt 56.8 kg
[2020-03-25 12:50] VITALS: BP 103/56
[~2020-03-25 12:50] MED LIST changes: +CEPH-263 PO; +ONDA4TAB7 PO; +PHEN100T82 PO
--- NOTE | 2020-03-25 14:13 | RAD ---
EXAM: KNEE RIGHT 3V 03/25/2020 1:45 PM CLINICAL INDICATION:Pain post blunt trauma COMPARISON:None TECHNIQUE:3 views of the right knee FINDINGS:No acute fracture. Alignment is normal. Joint spaces are maintained. No joint effusion. IMPRESSION:Normal radiograph of the knee. Electronically signed by: Sheryl Lorenz MD (03/25/2020 2:10 PM) [id number]
--- NOTE | 2020-03-25 14:41 | RAD ---
CT HEAD AND MAXILLOFACIAL WO, CT CERVICAL SPINE WO CONTRAST Date: 03/25/2020 1:44 PM Clinical Indication: pain s/p blunt trauma Comparison: None. Technique: 5 mm axial tomographic images were obtained of the head without contrast. These were viewed on brain and bone windows. Axial helical images of the face were obtained without contrast. Axial and coronal reconstruction was performed. CT imaging of the cervical spine was performed without contrast. Coronal and sagittal reformatted images were performed. One or more of the following dose reduction techniques were utilized: Automated exposure control (AEC), Adjustment of mA and/or kV according to patient size, Use of iterative reconstruction technique such as ASiR, CT scan done according to ALARA and image gently/image wisely CT HEAD FINDINGS: The brain parenchyma is normal in attenuation. No intra- or extra-axial mass or fluid collection. No acute hemorrhage. The ventricles are normal in size, shape, and morphology. The rico-white matter junction is normal. The basilar cisterns are patent. The mastoid air cells are clear. No aggressive osseous lesion or fracture. CT FACE FINDINGS: There is no acute facial bone fracture. Secretions in the right maxillary sinus. The orbits are normal. The globes are intact. Nasal septum is deviated to the right. Poor dentition with multiple dental caries and periapical lucencies. CT CERVICAL SPINE FINDINGS: The cervical spine is normally aligned. No acute fracture. 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 The intervertebral disc heights are maintained. No high-grade spinal canal stenosis or neural foraminal narrowing. The thyroid gland is normal. No cervical lymphadenopathy. The visualized aerodigestive tract is unremarkable. The visualized lung apices are clear. Paratracheal air cyst at the cervicothoracic inlet on the right. Impression: 1. No acute intracranial process. 2. No acute facial bone fracture. 3. No acute osseous abnormality of the cervical spine. 4. Poor dentition with multiple dental caries and periapical lucencies. Dental referral is recommended. Electronically signed by: Pineda Jung MD (03/25/2020 2:38 PM) [id number]
[2020-03-25] MEDS ORDERED: HYDR-3165 PO (15:03)
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
== END 2020-03-25 15:16 | disposition home or self-care (01) ==
LOC: ER 12:50
DX: S16.1XXA Strain of muscle, fascia and tendon at neck level, initial encounter (principal); S86.911A Strain of unspecified muscle(s) and tendon(s) at lower leg level, right leg, initial encounter; S00.83XA Contusion of other part of head, initial encounter; J45.909 Unspecified asthma, uncomplicated; F10.20 Alcohol dependence, uncomplicated; Y90.9 Presence of alcohol in blood, level not specified; Y08.89XA Assault by other specified means, initial encounter; Y93.89 Activity, other specified; Y92.89 Other specified places as the place of occurrence of the external cause; Y99.8 Other external cause status
CPT/HCPCS: 70450; 70486; 72125; 73562; 96372; 99285; J3010

== ENCOUNTER 2020-11-26 16:30 | Emergency (ER) | payer SELFPAY ==
[~2020-11-26] VITALS: Ht 162.6 cm; Wt 56.8 kg
[~2020-11-26 16:30] MED LIST changes: -CLIN150C14 PO; +CLIN150C15 PO; -CLIN300C8 PO; +CLIN300C9 PO
[2020-11-26 16:46] VITALS: BP 153/88
[2020-11-26] MEDS ORDERED: HYDROcodone/APAP 7.5/325MG 1 TAB TABLET PO ONE (17:00)
[2020-11-26] MEDS ORDERED: HYDR-2763 PO (17:00)
[2020-11-26] MEDS ORDERED: AMOX1TAB61 PO (17:00)
[2020-11-26] MEDS ORDERED: AMOXICILLIN/K CLAV 875/125MG TABLET. PO ONE (17:00)
--- NOTE | 2020-11-26 17:00 | PHYS DOC ---
Past History Past Medical History: Asthma, Ovarian Cyst Past Surgical History: Appendectomy, Hysterectomy, Tubal ligation, Other Additional Past Surgical Histo: transvaginal mesh Smoking: Cigarettes, Greater than 1 pack/day Alcohol Use: Heavy Drug Use: Cocaine, Marijuana Adult General Chief Complaint Chief Complaint: DENTAL PROBLEM HPI HPI Patient is a 45-year-old female presenting for dental pain. Was here appr oximately 1 year ago for similar history and presenting symptoms, ended up having a tooth abscess requiring incision and drainage and antibiotics. Reports symptoms started a few days ago, no expressible exudate or other concerning findings but admits increased pain and swelling on the superior left portion of mouth at site of prior incision and drainage. Requesting evaluation for need of incision, requesting pain control, and also requesting antibiotics. She did not follow-up with dentist after last ER visit for this problem Review of Systems Review of Systems Fourteen body systems of review of systems have been reviewed. See HPI for pertinent positives and negative responses, other li all other systems are negative, non-pertinent or non-contributory Allergies Allergies Allergies Coded Allergies Type Severity Reaction Last Updated Verified No Known Drug Allergies 03/25/20 No Physical Exam Physical Exam Constitutional: Well developed, well nourished, moderate distress and crying due to pain HENT: Normocephalic, atraumatic, bilateral external ears normal, oropharynx dry with poor dentition, tooth #13 with infected dental carry without expressible exudate or other concerning findings, no oral exudates, nose normal. Eyes: PERRLA, EOMI, conjunctiva normal, no discharge. Neck: Normal range of motion, no tenderness, supple, no stridor. Cardiovascular: Heart rate regular per monitor Lungs & Thorax: No respiratory distress or accessory muscle use, bilateral chest rise Abdomen: Abdomen soft, non-tender, bowel sounds present in all quadrants, no guarding or rebound, nonacute abdomen. Skin: Warm, dry, no erythema, no rash. Back: No tenderness, no CVA tenderness. Extremities: No tenderness, no cyanosis, no clubbing, ROM intact, no edema. Neurologic: Alert and oriented X 3, grossly normal motor & sensory function, no focal deficits noted. Psychologic: Affect normal, judgement normal, mood normal. Current Patient Data Vital Signs Vital Signs Date Time Temp Pulse Resp B/P (MAP) Pulse Ox O2 Delivery O2 Flow Rate FiO2 11/26/20 16:46 97.7 86 16 153/88 (109) 97 Room Air Vital Signs Date Time Temp Pulse Resp B/P (MAP) Pulse Ox O2 Delivery O2 Flow Rate FiO2 11/26/20 16:46 97.7 86 16 153/88 (109) 97 Room Air Lab Results Current Medications Medications (Trade) Dose Ordered Sig/Raad Route PRN Reason Start Time Stop Time Status Last Admin Dose Admin Acetaminophen/ Hydrocodone Bitart (Lortab 7.5/325) 1 tab 1X ONCE PO 11/26/20 17:00 11/26/20 17:01 DC Amoxicillin/ Clavulanate Potassium (Augmentin 875/ 125mg) 1 tab 1X ONCE PO 11/26/20 17:00 11/26/20 17:01 DC EKG EKG [] Radiology/Procedures Radiology/Procedures [] Heart Score C/O Chest Pain: No Risk Factors: Risk Factors: DM, Current or recent (<one month) smoker, HTN, HLP, family history of CAD, obesity. Risk Scores: Risk Factors: DM, Current or recent (<one month) smoker, HTN, HLP, family history of CAD, obesity. Course & Med Decision Making Course & Med Decision Making Discussed with the patient all findings and diagnostic testing. I discussed most likely diagnosis of dental abscess without obvious indication for incision and drainage at present. With that said, there is obvious need for pain control and antibiotics. I reviewed the fact that patient did not follow-up with dentist after last ER visit and so, I stressed need for close outpatient follow-up to review today's ER visit. Strict return precautions were also discussed at length with good understanding by patient. Patient voiced understanding and agreement with the plan. Patient knows to come back for repeat evaluation if concerning signs or symptoms present prior to outpatient follow-up. Hemodynamically stable, ambulatory and well-appearing at time of disposition. Dragon Disclaimer Dragon Disclaimer This electronic medical record was generated, in whole or in part, using a voice recognition dictation system. Departure Departure: Impression: Primary Impression: Dental abscess Disposition: HOME / SELF CARE / HOMELESS Condition: STABLE Referrals: PCP,NO (PCP) Patient Instructions: Dental Abscess Additional Instructions: You were seen for dental pain. There does appear to be an infection at this time. Take Ibuprofen (600-800mg) and Tylenol (500-650mg) alternating every 4-6 hours to help with inflammation and pain while you contact a dentist for further care. An antibiotic, Augmentin, was given to you while in the ER and sub sequent prescription was written. You must take this as prescribed to completion. In addition, you were given a pain medication that should be taken as needed as prescribed for severe pain only. You should return to the ED if you develop worsening pain, fever > 101, swelling, redness, or any other new or concerning symptoms. Unfortunately, your pain is not likely to improve without seeing a dentist for further evaluation and treatment of your poor dentition and dental caries. Scripts Hydrocodone/Acetaminophen (Hydrocodone-Acetamin 7.5-325) 1 Each Tablet 1 EACH PO Q6HRS for SEV PAIN, #14 TAB Prov: OWEN HAMILTON DO 11/26/20 Amoxicillin/Potassium Clav (AUGMENTIN 875-125 TABLET) 1 Each Tablet 1 TAB PO BID for DENTAL ABSCESS for 7 Days, #14 TAB 0 Refills Prov: OWEN HAMILTON DO 11/26/20 OWEN HAMILTON DO Nov 26, 2020 17:00
== END 2020-11-26 17:21 | disposition home or self-care (01) ==
LOC: ER 16:30
DX: K04.7 Periapical abscess without sinus (principal); J45.909 Unspecified asthma, uncomplicated; F17.210 Nicotine dependence, cigarettes, uncomplicated; F12.10 Cannabis abuse, uncomplicated; F14.10 Cocaine abuse, uncomplicated; Z90.710 Acquired absence of both cervix and uterus; Z98.51 Tubal ligation status
CPT/HCPCS: 99283

== ENCOUNTER 2021-11-02 08:57 | Emergency (ER) | payer SELFPAY ==
[~2021-11-02] VITALS: Ht 162.6 cm; Wt 61.0 kg
[~2021-11-02 08:57] MED LIST changes: +CLIN-95 PO; -CLIN150C15 PO; +CLIN150C16 PO; -CLIN300C9 PO; +HYDR-2763 PO
[2021-11-02 09:00] VITALS: BP 120/68
[2021-11-02] MEDS ORDERED: AMOX1TAB61 PO (09:25)
[2021-11-02] MEDS ORDERED: HYDR-2155 PO (09:25)
--- NOTE | 2021-11-02 09:26 | PHYS DOC ---
Past History Past Medical History: No Pertinent History Past Surgical History: Appendectomy, Hysterectomy, Tubal ligation Additional Past Surgical Histo: transvaginal mesh Smoking: Cigarettes, Greater than 1 pack/day Alcohol Use: Occasionally Drug Use: Cocaine, Marijuana Adult General Chief Complaint Chief Complaint: DENTAL PROBLEM HPI HPI Patient is a 46 year old female who presents with complaint of left upper dental pain. Patient states her symptoms started worsening yesterday. Has history of multiple dental caries and poor dentition. States that she has had problems at the same tooth previously. Currently does not have a dental appointment scheduled. Has had worsening pain and swelling of the gums at the tooth site. Has taken ibuprofen at home with no significant improvement. Denies fevers, vision changes, or sore throat. Review of Systems Review of Systems Constitutional: Denies fever or chills [] Eyes: Denies change in visual acuity, redness, or eye pain [] HENT: Dental pain, facial swelling, denies sore throat or ear pain [] Respiratory: Denies cough or shortness of breath [] Musculoskeletal: Denies neck or joint pain [] Neurologic: Denies headache, focal weakness or sensory changes [] All other systems were reviewed and found to be within normal limits, except as documented in this note. Allergies Allergies Allergies Coded Allergies Type Severity Reaction Last Updated Verified No Known Drug Allergies 11/02/21 No Physical Exam Physical Exam Constitutional: Well developed, well nourished, no acute distress, non-toxic appearance. [] HENT: Normocephalic, atraumatic, bilateral external ears normal, oropharynx moist, tooth site #14 with exposed root only, significant gingival swelling, no palpable fluctuance, directly tender to palpation. [] Eyes: PERRLA, EOMI, conjunctiva normal, no discharge. [] Neck: Normal range of motion, no tenderness, supple, no stridor. [] Lungs & Thorax: Bilateral breath sounds clear to auscultation [] Neurologic: Alert and oriented X 3, normal motor function, normal sensory function, no focal deficits noted. [] Current Patient Data Vital Signs Vital Signs Date Time Temp Pulse Resp B/P (MAP) Pulse Ox O2 Delivery O2 Flow Rate FiO2 11/02/21 09:00 98.1 84 20 120/68 (85) 96 Lab Results Not performed EKG EKG Not performed [] Radiology/Procedures Radiology/Procedures Not performed [] Heart Score C/O Chest Pain: No Risk Factors: Risk Factors: DM, Current or recent (<one month) smoker, HTN, HLP, family history of CAD, obesity. Risk Scores: Risk Factors: DM, Current or recent (<one month) smoker, HTN, HLP, family history of CAD, obesity. Course & Med Decision Making Course & Med Decision Making Pertinent Labs and Imaging studies reviewed. (See chart for details) Examination and findings appear consistent with dental infection. Suspect possible apical abscess. Patient will be treated with Augmentin for 10-day course of therapy. Prescribed [place] for assistance in pain control. Recommend close follow-up with a dentist in the next 5 to 7 days for reevaluation and return to the emergency department for any worsening symptoms. Patient voiced understanding and in agreement with treatment plan. [] Dragon Disclaimer Dragon Disclaimer This electronic medical record was generated, in whole or in part, using a voice recognition dictation system. Departure Departure: Impression: Primary Impression: Dental infection Disposition: HOME / SELF CARE / HOMELESS Condition: STABLE Referrals: PCPSHAKEEL (PCP) Patient Instructions: Dental Abscess Additional Instructions: Follow-up with a dentist in the next 5 to 7 days for reevaluation. Return to the emergency department for any worsening symptoms. Scripts Amoxicillin/Potassium Clav (AUGMENTIN 875-125 TABLET) 1 Each Tablet 1 TAB PO BID for 10 Days, #20 TAB 0 Refills Prov: BUCK MCGEE MD 11/02/21 Hydrocodone Bit/Acetaminophen (HYDROCODONE-APAP 5-325 ) 1 Each Tablet 1 TAB PO Q6HRS PRN for PAIN, #12 TAB 0 Refills Prov: BUCK MCGEE MD 11/02/21 BUCK MCGEE MD November 02, 2021 09:26
== END 2021-11-02 09:30 | disposition home or self-care (01) ==
LOC: ER 08:57
DX: K04.7 Periapical abscess without sinus (principal); Z90.710 Acquired absence of both cervix and uterus; Z90.89 Acquired absence of other organs; Z98.51 Tubal ligation status; F12.10 Cannabis abuse, uncomplicated; F14.10 Cocaine abuse, uncomplicated
CPT/HCPCS: 99283